=== PATIENT | male | born 1950 | race Caucasian/White ===

== ENCOUNTER → 2017-02-28 | Outpatient (CLI) | payer MEDICARE, OTHER ==
[2016-04-06 14:00] VITALS: BP 131/75
[~2017-02-28] MED LIST: ALPR0.5T6 PO; AMLO5TAB2 PO; BIMA2.5D EACHEYE; CHOL4000 PO; CRESTOR10 MG PO; DOCU-109 PO; DOXA4TAB3 PO; FINA5TAB4 PO; HYDR-2679 PO; HYDR25TA9 PO; IBUP-1027 PO; LANS30CA66 PO; LEVO50TA PO; LISI-334 PO; METF500T4 PO; METH-38 PO; MISO200T PO; NAPR500T PO; PIOG30TA41 PO
--- NOTE | 2017-02-28 17:21 | KCIC ---
MR of the right wrist Indication: Pain for a few months. History of carpal tunnel surgery. Right wrist ganglion. Technique: Standard multiplanar sequences are obtained. Findings: Moderate motion degradation. Triangular fibrocartilage: Full-thickness tear at the radial aspect, measuring 2 mm wide. Extensor carpi ulnaris tendon: Mild tendinosis, no tear or dislocation. Other extensor compartments: No apparent abnormality Flexor tendons: Intact Carpal tunnel and median nerve: Unremarkable Scapholunate ligament and lunotriquetral ligament: Scapholunate ligament is heterogeneous. No evidence of a through and through tear. There is dorsal tilt of the lunate with increased scapholunate angle. No evidence of lunotriquetral abnormality. Joints: Trace fluid at the distal radioulnar joint, radiocarpal compartment and mid carpal compartment. Bones: Marrow heterogeneity within the lunate bone on T1-weighted and T2-weighted images. No evidence of acute fracture. No bone collapse. This has a chronic appearance with serpiginous margins. Soft tissues: Mild soft tissue edema around the wrist. No dominant soft tissue cyst or ganglion is identified. Impression: 1. Full-thickness tear of the triangular fibrocartilage. 2. Abnormal marrow signal of the lunate bone, suspicious for osteonecrosis or Kienbock's disease. No evidence of macro fracture or bone collapse. 3. Scapholunate ligament is heterogeneous. There is no through and through rupture, but there is dorsal tilting of the lunate, and some degree of tearing or dissociation is suspected. 4. Mild extensor carpi ulnaris tendinosis. Electronically signed by: Freddie Pelaez MD (02/28/2017 5:18 PM)
== END | disposition home or self-care (01) ==
LOC: KCIC MRI 15:53
PROVIDERS: ATTEND Internal Medicine
DX: M67.431 Ganglion, right wrist (principal)
CPT/HCPCS: 73221

== ENCOUNTER → 2017-08-29 | Outpatient (CLI) | payer MEDICARE, OTHER ==
[~2017-08-29] MED LIST changes: -ALPR0.5T6 PO; -AMLO5TAB2 PO; -BIMA2.5D EACHEYE; +BUPIVACAINE MPF 0.25% 10 ML VIAL.; -CHOL4000 PO; -CRESTOR10 MG PO; -DOCU-109 PO; -DOXA4TAB3 PO; -FINA5TAB4 PO; -HYDR-2679 PO; -HYDR25TA9 PO; -IBUP-1027 PO; +IOHEXOL 180 MG/ML 10 ML VIAL.; -LANS30CA66 PO; -LEVO50TA PO; -LISI-334 PO; -METF500T4 PO; -METH-38 PO; -MISO200T PO; -NAPR500T PO; -PIOG30TA41 PO; +methylPREDNISolone ACETATE 80 MG/ML VIAL.
== END | disposition home or self-care (01) ==
LOC: PNCL 07:57
DX: M46.1 Sacroiliitis, not elsewhere classified (principal); M96.1 Postlaminectomy syndrome, not elsewhere classified; M48.061 Spinal stenosis, lumbar region without neurogenic claudication; M54.16 Radiculopathy, lumbar region; F41.9 Anxiety disorder, unspecified; F32.9 Major depressive disorder, single episode, unspecified; F17.200 Nicotine dependence, unspecified, uncomplicated; E03.9 Hypothyroidism, unspecified; E11.39 Type 2 diabetes mellitus with other diabetic ophthalmic complication; H40.9 Unspecified glaucoma; E78.00 Pure hypercholesterolemia, unspecified; I10 Essential (primary) hypertension; Z96.652 Presence of left artificial knee joint; Z90.49 Acquired absence of other specified parts of digestive tract; N40.0 Benign prostatic hyperplasia without lower urinary tract symptoms
CPT/HCPCS: 77002; G0260; J1040; J3490

== ENCOUNTER → 2017-11-29 | Outpatient (CLI) | payer MEDICARE, OTHER | LOC: PNCL 09:01 | DX: M48.061 Spinal stenosis, lumbar region without neurogenic claudication (principal); M54.16 Radiculopathy, lumbar region; M96.1 Postlaminectomy syndrome, not elsewhere classified; M46.1 Sacroiliitis, not elsewhere classified | CPT/HCPCS: G0260; J1040; J3490; Q9965 ==

== ENCOUNTER → 2018-01-28 | Outpatient (CLI) | payer MEDICARE, OTHER ==
[~2018-01-28] MED LIST changes: +LIDOCAINE 1% PF 2 ML VIAL.
== END ==
LOC: PNCL 08:19
DX: M46.1 Sacroiliitis, not elsewhere classified (principal); M48.061 Spinal stenosis, lumbar region without neurogenic claudication; M54.16 Radiculopathy, lumbar region; M96.1 Postlaminectomy syndrome, not elsewhere classified; H40.9 Unspecified glaucoma; E11.39 Type 2 diabetes mellitus with other diabetic ophthalmic complication; E78.00 Pure hypercholesterolemia, unspecified; I10 Essential (primary) hypertension; M19.90 Unspecified osteoarthritis, unspecified site; F32.9 Major depressive disorder, single episode, unspecified; F41.9 Anxiety disorder, unspecified; F17.200 Nicotine dependence, unspecified, uncomplicated; E03.9 Hypothyroidism, unspecified; Z96.652 Presence of left artificial knee joint; Z90.49 Acquired absence of other specified parts of digestive tract; Z98.890 Other specified postprocedural states
CPT/HCPCS: G0260; J1040; J3490; Q9965

== ENCOUNTER → 2018-03-17 | Outpatient (CLI) | payer MEDICARE, OTHER | LOC: PNCL 09:03 | DX: M46.1 Sacroiliitis, not elsewhere classified (principal); M96.1 Postlaminectomy syndrome, not elsewhere classified; M54.16 Radiculopathy, lumbar region; M48.061 Spinal stenosis, lumbar region without neurogenic claudication; I10 Essential (primary) hypertension; E03.9 Hypothyroidism, unspecified; E11.9 Type 2 diabetes mellitus without complications; M19.90 Unspecified osteoarthritis, unspecified site; F32.9 Major depressive disorder, single episode, unspecified; F41.9 Anxiety disorder, unspecified; F17.200 Nicotine dependence, unspecified, uncomplicated; Z90.49 Acquired absence of other specified parts of digestive tract; Z98.890 Other specified postprocedural states; Z96.652 Presence of left artificial knee joint; Z79.899 Other long term (current) drug therapy | CPT/HCPCS: 27096; J1040; J3490; Q9965 ==

== ENCOUNTER → 2018-04-01 | Outpatient (CLI) | payer MEDICARE, OTHER ==
[~2018-04-01] MED LIST changes: -LIDOCAINE 1% PF 2 ML VIAL.; +LIDOCAINE 2% PF 2ML VIAL.; +methylPREDNISolone ACETATE 40 MG/ML VIAL.
== END | disposition home or self-care (01) ==
LOC: PNCL 08:58
DX: M46.1 Sacroiliitis, not elsewhere classified (principal); M48.061 Spinal stenosis, lumbar region without neurogenic claudication; M96.1 Postlaminectomy syndrome, not elsewhere classified; M54.16 Radiculopathy, lumbar region; E11.39 Type 2 diabetes mellitus with other diabetic ophthalmic complication; H40.9 Unspecified glaucoma; Z98.890 Other specified postprocedural states; E78.00 Pure hypercholesterolemia, unspecified; I10 Essential (primary) hypertension; Z90.49 Acquired absence of other specified parts of digestive tract; N40.0 Benign prostatic hyperplasia without lower urinary tract symptoms; M19.90 Unspecified osteoarthritis, unspecified site; Z96.652 Presence of left artificial knee joint; E03.9 Hypothyroidism, unspecified; F41.9 Anxiety disorder, unspecified; F32.9 Major depressive disorder, single episode, unspecified; F17.200 Nicotine dependence, unspecified, uncomplicated; Z79.899 Other long term (current) drug therapy; Z79.84 Long term (current) use of oral hypoglycemic drugs
CPT/HCPCS: G0260; J1030; J1040; J2001; J3490; Q9965

== ENCOUNTER → 2018-06-30 | Outpatient (CLI) | payer MEDICARE, OTHER ==
[2016-04-06 14:00] VITALS: BP 131/75
[~2018-06-30] MED LIST changes: +ALPR0.5T6 PO; +AMLO5TAB7 PO; +BIMA2.5D EACHEYE; -BUPIVACAINE MPF 0.25% 10 ML VIAL.; +CHOL4000 PO; +CRESTOR10 MG PO; +DOCU-109 PO; +DOXA4TAB3 PO; +FINA5TAB4 PO; +HYDR-2679 PO; +HYDR25TA9 PO; +IBUP-1027 PO; -IOHEXOL 180 MG/ML 10 ML VIAL.; +IOHEXOL 180 MG/ML 10 ML VIAL. ONE; +LANS30CA66 PO; +LEVO50TA PO; +LIDOCAINE 1% PF 2 ML VIAL. ONE; -LIDOCAINE 2% PF 2ML VIAL.; +LISI-334 PO; +METF500T16 PO; +METH-38 PO; +MISO200T PO; +NAPR-683 PO; +PIOG30TA41 PO; -methylPREDNISolone ACETATE 40 MG/ML VIAL.; +methylPREDNISolone ACETATE 40 MG/ML VIAL. ONE; -methylPREDNISolone ACETATE 80 MG/ML VIAL.; +methylPREDNISolone ACETATE 80 MG/ML VIAL. ONE
--- NOTE | 2018-06-30 14:06 | PAIN ---
DATE OF SERVICE: 06/30/2018 PROGRESS NOTE FOR PAIN CLINIC DIAGNOSES: 1. Lumbar radiculopathy with lumbar spinal stenosis and post-lumbar laminectomy syndrome. 2. Sacroiliitis, right greater than left. HISTORY OF PRESENT ILLNESS: The patient is a 67-year-old male who returns for followup status post right and left sacroiliac joint injections, most recently seen on 04/01/2018. The patient had a left sacroiliac joint injection with good results. The patient reports about 100% improvement, but he is just getting off a long car ride. He was in [place] and back driving and riding back and forth, which has exacerbated the pain in the back as well as into his left lower extremity. The patient reports the pain is traveling in the left gluteus, left posterior thigh, lateral thigh, anterior thigh, medial thigh, medial knee and medial lower leg and calf on the left side as well as across the low back and pain in the right side as well. The patient reports the pain is a 8 on a scale of 10 at its worst, average and at its least and is an 8 today. The patient reports no new motor or sensory deficits, no bowel or bladder incontinence. Initially, he was walking much greater distances, driving with much greater ease and comfort back after his injection in March, but now the pain is returning and again in a radicular pattern into the left lower extremity as well as pain across the low back and into the right sacroiliac region. PHYSICAL EXAMINATION: VITAL SIGNS: The patient's blood pressure is 134/75, pulse 99, respirations 16, temperature 97.9 degrees Fahrenheit, height is 6 feet, weight is 280 pounds. GENERAL: The patient is awake, alert, oriented, appropriate, very pleasant demeanor. HEENT: Head shows normocephalic, atraumatic. Extraocular movements are intact and symmetrical. Oral cavity: Mucous membranes are moist and pink. Dentition is intact. NECK: Shows anterior throat supple without palpable lymphadenopathy noted. Swallow reflex is symmetrical. CHEST: Shows normal on inspection. Breath sounds are clear to auscultation bilaterally. HEART: Shows S1, S2 clear. No murmurs auscultated. ABDOMEN: Soft, nontender, nondistended. No palpable organomegaly is noted. No rebound or guarding demonstrated. BACK: Shows spine grossly in the midline. Slight exaggeration of thoracic kyphosis and some minor flattening of lumbar lordotic curvature with well-healed surgical scar in the midline. Lumbar paraspinous muscle shows symmetrical on inspection, on palpation shows some moderate tenderness bilaterally, but only diffusely without radiation. The patient has good rotational motion of lumbar spine, both laterally as well as extension and flexion without significant difficulty. There is some moderate tenderness over the right posterior superior iliac spine and right sacroiliac region, but less so on the left. The patient shows no tenderness over the sacrum or spinous processes. The patient has good rotational motion of lumbar spine, both laterally as well as extension and flexion without difficulty. EXTREMITIES: Lower extremities show deep tendon reflexes at 1+ in the patellar and tendo calcaneus tendons. Motor exam is approximately 5 on a scale of 5 and symmetrical with dorsiflexion, extension, quadriceps and hamstring flexion. Peripheral pulses are 1+ posterior tibia. No peripheral edema is noted. Options were discussed with the patient. The patient's old chart was reviewed as his current medication regimen updated. Current review of systems updated today as well. We will proceed with a lumbar epidural steroid injection today with fluoroscopic guidance. Risks were again discussed including, but not limited to bleeding, infection, possibility of epidural hematoma, subsequent neurologic compromise, dural puncture, headaches, spinal cord and/or nerve damage, side effects of steroid medication and poor results regarding pain control. The patient understands and wished to proceed. The patient will return to the clinic in approximately 2 weeks for followup, was counseled on return appointment, activity level and side effects to be aware of. DIAGNOSIS: Lumbar radiculopathy with lumbar spinal stenosis and post-lumbar laminectomy syndrome. PROCEDURE: Lumbar epidural steroid injection, translaminar approach at L3-L4 level using C-arm fluoroscopic guidance under sterile prep and drape using local anesthetic. MEDICATION INJECTED: A total of 120 mg Depo-Medrol plus 10 mL of preservative-free normal saline and 2 mL of Isovue for contrast. CONDITION AT DISCHARGE: Stable. The patient tolerated the procedure well, had no complications. JEREL CHURCH MD DR: VIRGEN/simon JOB#: [id number] / [id number]
== END | disposition home or self-care (01) ==
LOC: PNCL 07:45
PROVIDERS: ATTEND Anesthesiology
DX: M48.061 Spinal stenosis, lumbar region without neurogenic claudication (principal); M96.1 Postlaminectomy syndrome, not elsewhere classified; M54.16 Radiculopathy, lumbar region; M46.1 Sacroiliitis, not elsewhere classified
CPT/HCPCS: 62323; J1030; J1040; Q9965

== ENCOUNTER → 2018-08-01 | Outpatient (CLI) | payer MEDICARE, OTHER ==
[2016-04-06 14:00] VITALS: BP 131/75
[~2018-08-01] MED LIST changes: +HYDR-2145 PO; -HYDR25TA9 PO; -LIDOCAINE 1% PF 2 ML VIAL. ONE
--- NOTE | 2018-08-01 20:21 | PAIN ---
DATE OF SERVICE: 08/01/2018 PROGRESS NOTE FOR PAIN CLINIC DIAGNOSES: 1. Lumbar radiculopathy with lumbar spinal stenosis, post-lumbar meclizine. 2. Sacroiliitis, right greater than left. HISTORY OF PRESENT ILLNESS: The patient is a 67-year-old male who returns for followup status post lumbar epidural steroid injection x 1 on 06/30/2018. The patient did very well and reports about 80% improvement for the first few weeks and then, he was doing some holiday decorating over the past 2-3 weeks with exacerbation of the pain with standing on ladders for a prolonged period of time and raising up over his head with some decorations and so forth. The patient reports pain is returning now in the low back, more on the right side than the left. It is still in the left leg as it was previously in the lateral anterior aspect of the thigh, anterior medial thigh as well. The patient reports it is 9 on a scale of 10 at its worst, 6 on average and is 3 on a scale of 10 at its least and is a 6 today. The patient reports it is sharp, radiating, stabbing and severe but mostly dull and aching in the low back and into the left leg is more sharp and shooting. The patient reports no new motor or sensory deficits and reports he is doing very well with increased distance walking and doing activities around the house with decorating, sleeping well at night, awakens him occasionally but not sooner than every 6-8 hours. The patient reports he needs to reposition and get back to sleep. No new motor or sensory deficits and no bowel or bladder incontinence reported. PHYSICAL EXAMINATION: VITAL SIGNS: The patient's blood pressure 143/87, pulse 99, respirations 18 and temperature 98.2 degrees Fahrenheit. Height 6 feet and weight is 278 pounds. GENERAL: The patient is awake, alert, oriented, appropriate and very pleasant demeanor. HEENT: Head shows normocephalic and atraumatic. Extraocular movements are intact and symmetrical. Oral cavity: Mucous membranes moist and pink. Dentition is intact. NECK: Shows anterior throat supple without palpable lymphadenopathy noted. Swallow reflex symmetrical. CHEST: Shows normal with inspection. Breath sounds clear to auscultation bilaterally. HEART: Shows S1 and S2 clear. No murmurs auscultated. ABDOMEN: Soft, nontender and nondistended. No palpable organomegaly is noted. No rebound or guarding demonstrated. BACK: Shows spine grossly in the midline. Some slight flattening of the lumbar lordotic curvature with well-healed surgical scar noted. Lumbar paraspinous musculature shows symmetrical on inspection. On palpation shows some moderate tenderness diffusely bilaterally but without significant radiation or trigger points. The patient shows good rotational motion both laterally as well as extension and flexion of the lumbar spine without significant difficulty. EXTREMITIES: The patient's lower extremities show deep tendon reflexes 1+ in the patellar and tendo calcaneus tendons are equal. Motor exam is strong with 5/5 dorsiflexion, extension, quadriceps and hamstring flexion and symmetrical. Peripheral pulses are 1+ posterior tibia. No peripheral edema is noted bilaterally. Options were discussed with the patient. The patient's old chart was reviewed as well as his current medication regimen updated. Current review of systems updated today as well. We will proceed with a second in the series of lumbar epidural steroid injection today with fluoroscopic guidance. Risks were again discussed including, but not limited to bleeding, infection, possibility of epidural hematoma, subsequent neurologic compromise, dural puncture, headaches, spinal cord and/or nerve damage, side effects of steroid medication and poor results regarding pain control. The patient understands and wished to proceed. The patient will return to the clinic in approximately 2 weeks for followup, was counseled as to return appointment, activity level and side effects to be aware of. DIAGNOSES: Lumbar radiculopathy with lumbar spinal stenosis and post-lumbar laminectomy syndrome. PROCEDURE: Lumbar epidural steroid injection, translaminar approach at L3-L4 level using C-arm fluoroscopic guidance under sterile prep and drape using local anesthetic. MEDICATION INJECTED: A total of 120 mg Depo-Medrol plus 10 mL of preservative-free normal saline and 2 mL of Isovue for contrast. CONDITION AT DISCHARGE: Stable. The patient tolerated the procedure well and had no complications. JEREL CHURCH MD DR: VIRGEN/simon JOB#: [id number] / [id number]
== END | disposition home or self-care (01) ==
LOC: PNCL 08:36
PROVIDERS: ATTEND Anesthesiology
DX: M48.061 Spinal stenosis, lumbar region without neurogenic claudication (principal); M96.1 Postlaminectomy syndrome, not elsewhere classified; M54.16 Radiculopathy, lumbar region; M46.1 Sacroiliitis, not elsewhere classified; Z79.899 Other long term (current) drug therapy
CPT/HCPCS: 62323; J1030; J1040; Q9965

== ENCOUNTER → 2018-12-24 | Outpatient (CLI) | payer MEDICARE, OTHER ==
[2016-04-06 14:00] VITALS: BP 131/75
[~2018-12-24] MED LIST changes: +AMLO5TAB10 PO; -AMLO5TAB7 PO; -CHOL4000 PO; +CHOL40003 PO
--- NOTE | 2018-12-24 22:55 | PAIN ---
DATE OF SERVICE: 12/24/2018 DIAGNOSES: Lumbar radiculopathy with lumbar spinal stenosis and post-laminectomy syndrome. HISTORY OF PRESENT ILLNESS: The patient is a 68-year-old male who returns for followup status post lumbar epidural steroid injection x 2, most recently seen on 08/01/2018: The patient did very well with near 100% improvement until the last week, the pain began to return and he rolled over in bed, had a popping sensation in the low back on the right side and had pain in the right side of the right leg since that time. It is radiating in the lateral anterior thigh, anterior medial thigh and medial knee on the right side only. The patient reports it is 6 on a scale of 10 at its worst, 6 on average, 4 at its least and is 6 today. The patient reports it is sharp, tingling, burning, stabbing. He was also doing some increased work at home. He was feeling very well, had moved over 3000 pounds of rock by himself in the last week, which has increased the pain as well. The patient reports otherwise he was doing much better prior to that, distance walking, household activities, recreational activities, traveling, sleeping better at night until the last few days. The patient reports no new motor or sensory deficits, no new bowel or bladder incontinence or other complaints. PHYSICAL EXAMINATION: VITAL SIGNS: The patient's blood pressure is 128/81, pulse 81, respirations 16, temperature 97.6 degrees Fahrenheit, height 6 feet, weight is 278 pounds. GENERAL: The patient is awake, alert, oriented, appropriate, very pleasant demeanor. HEENT: Head is normocephalic, atraumatic. Extraocular movements are intact and symmetrical. Oral cavity: Mucous membranes moist and pink. Dentition is intact. NECK: Shows anterior throat supple without palpable lymphadenopathy noted. Swallow reflex symmetrical. CHEST: Shows normal with inspection. Breath sounds clear to auscultation bilaterally. HEART: Shows S1, S2 clear. No murmurs auscultated. ABDOMEN: Soft, nontender, nondistended, obese. No palpable organomegaly is noted. No rebound or guarding demonstrated. BACK: Shows spine grossly in the midline. Normal-appearing thoracic kyphosis and minor flattening of lumbar lordotic curvature. Well-healed surgical scar noted. Lumbar paraspinous muscle shows symmetrical on inspection; on palpation shows some moderate tenderness, but only diffusely without significant radiation. The patient's back shows good rotational motion both laterally as well as extension and flexion without significant pain reported. EXTREMITIES: Lower extremities show deep tendon reflexes 1+ in the patellar and tendo-calcaneus tendons are equal. Motor exam is strong with 5/5 dorsiflexion, extension, quadriceps and hamstring flexion. Peripheral pulses are 1+ posterior tibia. No peripheral edema is noted bilaterally. Options were discussed with the patient. The patient's old chart was reviewed as was his current medication regimen updated. Current review of systems updated today as well. We will proceed with a third in the series of lumbar epidural steroid injection today with fluoroscopic guidance. Risks were again discussed including, but not limited to bleeding, infection, possibility of epidural hematoma, subsequent neurological compromise, dural puncture, headaches, spinal cord and/or nerve damage, side effects of steroid medication and poor results regarding pain control. The patient understands and wished to proceed. The patient will return to clinic in approximately 2 weeks for followup, was counseled as to return appointment, activity level and side effects to be aware of. DIAGNOSIS: Lumbar radiculopathy with lumbar spinal stenosis, post-lumbar laminectomy syndrome. PROCEDURE: Lumbar epidural steroid injection, translaminal approach at L3-L4 level using C-arm fluoroscopic guidance under sterile prep and drape using local anesthetic. MEDICATIONS INJECTED: 120 mg Depo-Medrol plus 10 mL of preservative-free normal saline and 2 mL of contrast. CONDITION AT DISCHARGE: Stable. The patient tolerated the procedure well, had no complications. JEREL CHURCH MD DR: VIRGEN/simon JOB#: [id number] / [id number]
== END | disposition home or self-care (01) ==
LOC: PNCL 10:25
PROVIDERS: ATTEND Anesthesiology
DX: M48.061 Spinal stenosis, lumbar region without neurogenic claudication (principal); M54.16 Radiculopathy, lumbar region; M96.1 Postlaminectomy syndrome, not elsewhere classified
CPT/HCPCS: 62323; J1030; J1040; Q9965

== ENCOUNTER → 2019-05-14 | Outpatient (CLI) | payer MEDICARE, OTHER ==
[2016-04-06 14:00] VITALS: BP 131/75
[~2019-05-14] MED LIST changes: +BUPIVACAINE MPF 0.25% 10 ML VIAL. ONE
--- NOTE | 2019-05-14 23:42 | PAIN ---
DATE OF SERVICE: 05/14/2019 PROGRESS NOTE FOR PAIN CLINIC DIAGNOSES: 1. Lumbar radiculopathy with lumbar degenerative disk disease, lumbar spinal stenosis, post-lumbar laminectomy syndrome. 2. Bilateral sacroiliitis. HISTORY OF PRESENT ILLNESS: The patient is a 68-year-old male who returns for followup status post lumbar epidural steroid injection, most recently on 12/21/2018. The patient did well with about 80% improvement only for the first 4 or 5 days, then the pain began to return. The patient reports he has just gotten back from a 5700-mile automobile [place] then to [place] with some increased pain in the base of the low back and the hips posteriorly with some radiation into the left lateral calf, but only on the left calf, not into the thigh. The patient reports it is worse with walking, standing, changing positions or sitting for a prolonged period. He has been sitting finding himself leaning over to his right side so that there is pressure off of the left side. Reports the pain is a 10 on a scale of 10 at its worst, 8 on average, 6 at its least and is a 6. Currently, the patient reports it is sharp, radiating, sometimes unbearable with prolonged sitting. The patient reports it is worse with walking as well, but mostly with sitting or sitting upright. The patient reports it is better with lying down, it does not awaken him from sleep at night. He is sleeping about 8 hours at a time. The patient reports no new motor or sensory deficits, no new bowel or bladder incontinence or other complaints. PHYSICAL EXAMINATION: VITAL SIGNS: The patient's blood pressure is 138/74, pulse 83, respirations 18, temperature 98.2 degrees Fahrenheit. Height is 6 feet. Weight is 281 pounds. GENERAL: The patient is awake, alert, oriented, appropriate, very pleasant demeanor. HEENT: Shows normocephalic, atraumatic. Extraocular movements are intact and symmetrical. Oral cavity: Mucous membranes moist and pink. Dentition is intact. NECK: Shows anterior throat supple without palpable lymphadenopathy noted. Swallow reflex symmetrical. CHEST: Shows normal on inspection. Breath sounds clear to auscultation bilaterally. HEART: Shows S1, S2 clear. ABDOMEN: Obese, soft, nontender, nondistended. BACK: Shows spine grossly in the midline. Normal appearing thoracic kyphosis and minor flattening of lumbar lordotic curvature. Lumbar paraspinous muscle shows symmetrical on inspection, with palpation shows some moderate tenderness diffusely in the middle and lower distribution of the lumbar paraspinous muscles, but only diffusely without radiation. The patient's sacroiliac region shows significant tenderness on the left with posterior superior iliac spine involving the superior aspect of the sacroiliac joint on the left. Right side shows moderate tenderness of posterior superior iliac spine as well as the superior aspect of the sacroiliac joint on the right side as well with direct palpation. The patient has good rotational motion of lumbar spine, extension and flexion without significant difficulty. EXTREMITIES: The patient's lower extremities show deep tendon reflexes 1+ in the patellar and tendo calcaneus tendons. Motor exam is 5/5 with dorsiflexion, extension, quadriceps and hamstring flexion equal. The patient does have positive Gaenslen's maneuver on the left with posterior displacement of the lower leg over the side and external rotation of the hip with pain in the posterior aspects of sacroiliac region on the left side, significantly very mildly but present on the right side as well. Options were discussed with the patient. The patient's old chart was reviewed and his current medication regimen updated. Current review of systems updated today as well. We will proceed with bilateral sacroiliac joint injections today with fluoroscopic guidance. Risks were again discussed including but not limited to bleeding, infection, possibility of intravascular injection sequelae, spread of local anesthetic and numbness, side effects of steroid medication, exposure to fluoroscopy and poor results regarding pain control. The patient understands and wished to proceed. The patient will return to clinic in approximately 2 weeks for followup. He was counseled as to return appointment, activity level and side effects to be aware of. DIAGNOSIS: Bilateral sacroiliitis. PROCEDURE: Bilateral sacroiliac joint injection using C-arm fluoroscopic guidance under sterile prep and drape using local anesthetic. MEDICATIONS INJECTED: Total of 120 mg of Depo-Medrol 60 mg per side, total of 4 mL of 0.25% bupivacaine 2 mL per side after negative aspiration at each site prior to injection, 4 mL total of 2 mL per site of contrast. CONDITION AT DISCHARGE: Stable. The patient tolerated the procedure well, had no complications. JEREL CHURCH MD DR: VIRGEN/simon JOB#: [id number] / [id number]
== END ==
LOC: PNCL 13:28
PROVIDERS: ATTEND Anesthesiology
DX: M46.1 Sacroiliitis, not elsewhere classified (principal); M51.16 Intervertebral disc disorders with radiculopathy, lumbar region; M96.1 Postlaminectomy syndrome, not elsewhere classified
CPT/HCPCS: G0260; J1030; J1040; J3490; Q9965; 27096

== ENCOUNTER → 2019-09-22 | Outpatient (CLI) | payer MEDICARE, OTHER ==
[2016-04-06 14:00] VITALS: BP 131/75
[~2019-09-22] MED LIST changes: -methylPREDNISolone ACETATE 40 MG/ML VIAL. ONE
--- NOTE | 2019-09-22 23:47 | PAIN ---
DATE OF SERVICE: 09/22/2019 PROGRESS NOTE FOR PAIN CLINIC DIAGNOSES: 1. Lumbar radiculopathy with lumbar spinal stenosis, lumbar post-laminectomy syndrome. 2. Bilateral sacroiliitis. HISTORY OF PRESENT ILLNESS: The patient is a 68-year-old male who returns for followup status post bilateral sacroiliac joint injections in May 2019. The patient did very well. His left side is completely 100% improved. His right side; however, is becoming more painful. The patient also reports some pain when he is seated in a prolonged position when he is driving with pain radiating into the posterior gluteus, posterior lateral thigh, and lateral anterior thigh on the left. The patient usually is able to shift positions and change positions to get this to go away fairly quickly. The patient reports the pain in the right side; however, is much more bothersome and much more painful with sitting, walking, standing, changing positions, does not awaken him from sleep at night, better with sitting or lying down, but not if he sitting for prolonged periods such as when he is driving. The patient reports again his right side is the only area of significant concern today. His left side is doing very well since last May. PHYSICAL EXAMINATION: VITAL SIGNS: The patient's blood pressure 147/85, pulse is 98, respirations 18, temperature 97.7 degrees Fahrenheit, height is 6 feet, weight is 280 pounds. The patient rates his pain at 8 on a scale of 10 at its worst over the past week, 5 on average, 5 at its least and is a 5 today, described as sharp and shooting, tingling, radiating in the right side significantly into the gluteus, but not into the lower extremity. GENERAL: The patient is awake, alert, oriented, appropriate, very pleasant demeanor. HEENT: Shows normocephalic, atraumatic. The patient wears eye glasses. Extraocular movements are intact and symmetrical. Oral cavity: Mucous membranes moist and pink. Dentition is intact. NECK: Shows anterior throat supple without palpable lymphadenopathy noted. Swallow reflex symmetrical. CHEST: Shows normal on inspection. Breath sounds clear to auscultation bilaterally. HEART: Shows S1, S2 clear. No murmurs auscultated. ABDOMEN: Soft, nontender, nondistended. No palpable organomegaly is noted. No rebound or guarding demonstrated. BACK: Shows spine grossly in the midline. Normal appearing thoracic kyphosis as well as some flattening of lumbar lordotic curvature. Lumbar paraspinous muscle shows symmetrical on inspection, well-healed surgical scars noted. With palpation shows some moderate tenderness diffusely, but only diffusely in the lower lumbar distribution without any radiation, without any atrophy, hypertrophy or asymmetry. The patient has good rotational motion of lumbar spine, both laterally as well as extension and flexion without significant difficulty with palpation over the posterior superior iliac spines. Left side is nontender. Right side significantly tender over the superior aspect of the posterior superior iliac spine and superior sacroiliac joint itself. The patient shows good rotational motion without exacerbation of pain, but significant tenderness with direct palpation on the posterior superior iliac spine and slightly medial and inferior to this on his superior aspect of the SI joint. EXTREMITIES: The patient's lower extremities show deep tendon reflexes 1+ in the patellar and tendo calcaneus tendons. Motor exam is strong with 5/5 dorsiflexion, extension, quadriceps and hamstring flexion. Options were discussed with the patient. The patient's old chart was reviewed as his current medication regimen updated. Current review of systems updated today as well. We will proceed with a right-sided sacroiliac joint injection today with fluoroscopic guidance. Risks were again discussed including, but not limited to bleeding, infection, possibility of intravascular injection sequelae, spread of local anesthetic and numbness, side effects of steroid medication, exposure to fluoroscopy and poor results regarding pain control. The patient understands and wished to proceed. The patient will return to clinic in approximately 2 weeks for followup. He was counseled on return appointment, activity level and side effects to be aware of. DIAGNOSIS: Right sacroiliitis. PROCEDURE: Right sacroiliac joint injection using C-arm fluoroscopic guidance under sterile prep and drape using local anesthetic. MEDICATION INJECTED: Total of 80 mg Depo-Medrol plus 4 mL of 0.25% bupivacaine and 1.5 mL of contrast. CONDITION AT DISCHARGE: Stable. The patient tolerated the procedure well, had no complications. JEREL CHURCH MD DR: VIRGEN/simon JOB#: [id number] / [id number]
== END ==
LOC: PNCL 13:01
PROVIDERS: ATTEND Anesthesiology
DX: M46.1 Sacroiliitis, not elsewhere classified (principal); M54.16 Radiculopathy, lumbar region; M48.061 Spinal stenosis, lumbar region without neurogenic claudication; M96.1 Postlaminectomy syndrome, not elsewhere classified
CPT/HCPCS: G0260; J1040; J3490; Q9965; 27096

== ENCOUNTER → 2019-12-16 | Outpatient (CLI) | payer MEDICARE, OTHER ==
[2016-04-06 14:00] VITALS: BP 131/75
[~2019-12-16] MED LIST changes: +LEVO75TA5 PO; +LOSA100T2 PO
--- NOTE | 2019-12-16 10:14 | PAIN ---
DATE OF SERVICE: 12/16/2019 PROGRESS NOTE FOR PAIN CLINIC DIAGNOSES: 1. Lumbar radiculopathy with lumbar spinal stenosis, lumbar post-laminectomy syndrome. 2. Bilateral sacroiliitis. HISTORY OF PRESENT ILLNESS: The patient is a 69-year-old male who returns for followup status post right sacroiliac joint injection on 09/22/2019. The patient did very well for about 3 months of near 100% improvement after the injection. The patient reports he still has some pain returning and has some pain across the low back. In the meantime, he is getting more active at home, doing yard activities as well as preparing meals at home. It is beginning to cause the pain in the low back, especially on the right. The patient reports it is a 10 on a scale of 10 at its worst over the past week, 8 on average, 7 at its least and is a 7 today. The patient reports tingling, aching, sharp, shooting, radiating across the low back, but not into the lower extremities currently. The patient reports mainly on the right side, has to limit his work. Otherwise, he is doing much better with distance walking, work activities, household activities, especially in the yard, does not awaken him from sleep at night, feels better sitting or lying down. No new motor or sensory deficits, no new bowel or bladder incontinence. PHYSICAL EXAMINATION: VITAL SIGNS: The patient's blood pressure 126/76, pulse 96, respirations 16, temperature 98.0 degrees Fahrenheit, height 6 feet, weight is 278 pounds. GENERAL: The patient is awake, alert, oriented, appropriate, very pleasant demeanor. HEENT: Head shows normocephalic, atraumatic. Extraocular movements are intact and symmetrical. Oral cavity shows mucous membranes moist and pink. Dentition is intact. NECK: Shows anterior throat supple without palpable lymphadenopathy noted. Swallow reflex symmetrical. CHEST: Shows normal on inspection. Breath sounds clear to auscultation bilaterally. HEART: Shows S1, S2 clear. No murmurs auscultated. ABDOMEN: Obese, soft, nontender, nondistended. BACK: Shows spine grossly in the midline. Normal appearing thoracic kyphosis and minor flattening of lumbar lordotic curvature. Lumbar paraspinous muscle shows symmetrical on inspection with a well-healed surgical scar in the midline. Paraspinous muscle shows moderate tenderness with palpation, more on the right than the left and significant tenderness over the posterior superior iliac spine on the right, only mildly tender on the left side, also some mild tenderness over the superior aspect of the sacroiliac joint on the right, but not the left. The patient has good rotational motion of lumbar spine, both laterally as well as extension and flexion without significant difficulty or pain reported. EXTREMITIES: The patient's lower extremities show deep tendon reflexes at 1+ in the patellar and tendo calcaneus tendons. Motor exam is strong with 5/5 dorsiflexion, extension, quadriceps and hamstring flexion symmetrical. Peripheral pulses are 1+ posterior tibia. No peripheral edema is noted bilaterally. Options were discussed with the patient. The patient's old chart was reviewed as his current medication regimen updated. Current review of systems updated today as well. We will proceed with a right sacroiliac joint injection today with fluoroscopic guidance. Risks were again discussed including, but not limited to bleeding, infection, possibility of intravascular injection sequelae, spread of local anesthetic and numbness, side effects of steroid medication, exposure to fluoroscopy and poor results regarding pain control. The patient understands and wished to proceed. The patient will return to clinic in approximately 2 weeks for followup, was counseled on return appointment, activity level and side effects to be aware of. DIAGNOSIS: Right sacroiliitis. PROCEDURE: Right sacroiliac joint injection using C-arm fluoroscopic guidance under sterile prep and drape using local anesthetic. MEDICATION INJECTED: Total of 80 mg Depo-Medrol plus 3 mL of 0.25% bupivacaine and 2 mL of contrast. CONDITION AT DISCHARGE: Stable. The patient tolerated procedure well, had no complications. JEREL CHURCH MD DR: VIRGEN/simon JOB#: [id number] / [id number]
== END ==
LOC: PNCL 08:47
PROVIDERS: ATTEND Anesthesiology
DX: M46.1 Sacroiliitis, not elsewhere classified (principal); M48.061 Spinal stenosis, lumbar region without neurogenic claudication; M96.1 Postlaminectomy syndrome, not elsewhere classified
CPT/HCPCS: G0260; J1040; J3490; Q9965; 27096

== ENCOUNTER → 2019-12-30 | Outpatient (CLI) | payer MEDICARE, OTHER ==
[2016-04-06 14:00] VITALS: BP 131/75
[~2019-12-30] MED LIST changes: -BUPIVACAINE MPF 0.25% 10 ML VIAL. ONE; +methylPREDNISolone ACETATE 40 MG/ML VIAL. ONE
--- NOTE | 2019-12-30 12:45 | PAIN ---
DATE OF SERVICE: 12/30/2019 PROGRESS NOTE FOR PAIN CLINIC DIAGNOSES: 1. Lumbar radiculopathy with lumbar spinal stenosis, lumbar post-laminectomy syndrome. 2. Bilateral sacroiliitis. HISTORY OF PRESENT ILLNESS: The patient is a 69-year-old male who returns for followup status post bilateral sacroiliac joint injections, which was 12/16/2019. The patient reports he did very well with 100% improvement on the right and about 80% improvement on the left. The patient reports still significant pain in the low back and right lower extremity, however, down to anterior thigh, medial leg and into the great toe on the right side. The patient reports no new motor or sensory deficits, but significant pain with walking, standing, changing positions, while his back is doing better, the leg on the right side, specifically in the anterior thigh, medial thigh, medial lower leg is much more painful. The patient reports it is worse with walking, initially he was doing much better with distances, walking, doing household activities, traveling with greater ease and comfort, but now the pain is fairly significant in the leg. The patient reports it is at 10 on a scale of 10 at its worst over the past week, 7 on average and 4 at its least and is a 4 today. The patient reports it is sharp and shooting, stabbing, radiating in the leg on the right side, mainly in the anterior thigh, medial knee and calf. No new motor or sensory deficits, no new bowel or bladder incontinence. The patient reports it awakens him from sleep occasionally, but not every night. PHYSICAL EXAMINATION: VITAL SIGNS: The patient's blood pressure 133/78, pulse 75, respirations 18, temperature 98.1 degrees Fahrenheit, height 6 feet, weight is 277 pounds. GENERAL: The patient is awake, alert, oriented, appropriate, very pleasant demeanor. HEENT: Shows normocephalic, atraumatic. Extraocular movements are intact and symmetrical. Oral cavity shows mucous membranes moist and pink. Dentition is intact. NECK: Shows anterior throat supple without palpable lymphadenopathy noted. Swallow reflex symmetrical. CHEST: Shows normal on inspection. Breath sounds are clear bilaterally. HEART: Shows S1, S2 clear. No murmurs auscultated. ABDOMEN: Soft, nontender, nondistended. BACK: Shows spine grossly in the midline. Normal appearing thoracic kyphosis and minor flattening of lumbar lordotic curvature with well-healed surgical scar noted in the lumbar distribution. Lumbar paraspinous muscle shows symmetrical on inspection, on palpation shows some moderate tenderness diffusely bilaterally, but only diffusely without significant radiation. The patient has good rotational motion of lumbar spine, both laterally as well as extension and flexion without significant increase in pain. Sacroiliac joint shows some very mild tenderness, slightly more on the left than the right in the posterior superior iliac spine, but only very mild tenderness over the sacroiliac regions in the joints themselves bilaterally. EXTREMITIES: Lower extremities show deep tendon reflexes 1+ in the patellar and tendo calcaneus tendons are equal. Motor exam is strong with 5/5 dorsiflexion, extension, quadriceps and hamstring flexion symmetrical. Peripheral pulses are 1+. No peripheral edema is noted bilaterally. Options were discussed with the patient. The patient's old chart was reviewed as his current medication regimen updated. Current review of systems updated today as well. We will proceed with a lumbar epidural steroid injection, today is the first in this series. Risks were again discussed including, but not limited to bleeding, infection, possibility of epidural hematoma, subsequent neurological compromise, dural puncture, headaches, spinal cord and/or nerve damage, side effects of steroid medication and poor results regarding pain control. The patient understands and wished to proceed. The patient will return to clinic in approximately 2 weeks for followup. He was counseled as to return appointment, activity level and side effects to be aware of. DIAGNOSES: Lumbar radiculopathy with lumbar degenerative disk disease and lumbar spinal stenosis and post-lumbar laminectomy syndrome. PROCEDURE: Lumbar epidural steroid injection, translaminar approach at L3-L4 level using C-arm fluoroscopic guidance under sterile prep and drape using local anesthetic. MEDICATION INJECTED: A total of 120 mg Depo-Medrol plus 10 mL of preservative-free normal saline and 2 mL of contrast. CONDITION AT DISCHARGE: Stable. The patient tolerated the procedure well, had no complications. JEREL CHURCH MD DR: VIRGEN/simon JOB#: [id number] / [id number]
== END ==
LOC: PNCL 10:42
PROVIDERS: ATTEND Anesthesiology
DX: M51.16 Intervertebral disc disorders with radiculopathy, lumbar region (principal); M96.1 Postlaminectomy syndrome, not elsewhere classified; M48.061 Spinal stenosis, lumbar region without neurogenic claudication; M46.1 Sacroiliitis, not elsewhere classified
CPT/HCPCS: 62323; J1030; J1040; Q9965

== ENCOUNTER → 2020-01-21 | Outpatient (CLI) | payer MEDICARE, OTHER ==
[2016-04-06 14:00] VITALS: BP 131/75
--- NOTE | 2020-01-21 13:45 | PAIN ---
DATE OF SERVICE: 01/21/2020 PROGRESS NOTE FOR PAIN CLINIC DIAGNOSES: 1. Lumbar radiculopathy with lumbar spinal stenosis, lumbar post-laminectomy syndrome. 2. Bilateral sacroiliitis. HISTORY OF PRESENT ILLNESS: The patient is a 69-year-old male who returns for followup status post lumbar epidural steroid injection x 1 on 12/30/2019. The patient reports he did very well, about 80% improvement for the first few weeks, but the pain has been returning now in the low back and right lower extremity, mostly in the right posterior gluteus, lateral thigh and medial thigh on the right side. The patient reports some pain in the left side of the low back as well, but much better than it was. The patient reports even increased activity, doing greater distance walking, doing household activities, weed eating; however, it has been causing more pain in the low back when he is doing this function, which he was doing about 3 days ago. The patient reports the pain is a 10 on a scale of 10 at its worst over the past week, usually during weed eating 8 on average, 6 at its least and is a 6 today. The patient reports it is sharp and shooting across the low back, tingling, shooting into the leg with radiating pain in the right leg and can be unbearable at times. The patient reports it does not awaken her from sleep at night, much better with sitting or lying down. PHYSICAL EXAMINATION: VITAL SIGNS: The patient's blood pressure 126/58, pulse 80, respirations 18, temperature 98.5 degrees Fahrenheit, height is 6 feet, weight is 276 pounds. GENERAL: The patient is awake, alert, oriented, appropriate, very pleasant demeanor. HEENT: Shows normocephalic, atraumatic. Extraocular movements are intact and symmetrical. Oral cavity: Mucous membranes moist and pink. Dentition is intact. NECK: Shows anterior throat supple without palpable lymphadenopathy noted. Swallow reflex symmetrical. CHEST: Shows normal on inspection. Breath sounds are clear bilaterally. HEART: Shows S1, S2 clear. No murmurs auscultated. ABDOMEN: Soft, nontender, nondistended. No palpable organomegaly is noted. There is no rebound or guarding demonstrated. BACK: Shows spine grossly in the midline. Normal appearing thoracic kyphosis, minor flattening of lumbar lordotic curvature. Lumbar paraspinous muscle shows symmetrical on inspection, with palpation and shows a well-healed surgical scar in the lumbar distribution, with palpation shows some moderate tenderness diffusely bilaterally, but only diffusely without significant radiation. The patient has good rotational motion of lumbar spine, both laterally as well as extension and flexion with some moderate tenderness with pain over the posterior superior iliac spine on the right, but much less so on the left. EXTREMITIES: Lower extremities show deep tendon reflexes 1+ in the patellar and tendo calcaneus tendons are equal. Motor exam is 5/5 with dorsiflexion, extension, quadriceps and hamstring flexion and symmetrical. Peripheral pulses are 1+ bilaterally. Options were discussed with the patient. The patient's old chart was reviewed as his current medication regimen updated. Current review of systems updated today as well. We will proceed with a second in a series of lumbar epidural steroid injection today with fluoroscopic guidance. Risks were again discussed including, but not limited to bleeding, infection, possibility of epidural hematoma, subsequent neurological compromise, dural puncture, headaches, spinal cord and/or nerve damage, side effects of steroid medication and poor results regarding pain control. The patient understands and wished to proceed. The patient will return to clinic in approximately 2 weeks for followup. He was counseled on return appointment, activity level and side effects to be aware of. DIAGNOSES: Lumbar radiculopathy with lumbar spinal stenosis, lumbar post-laminectomy syndrome. PROCEDURE: Lumbar epidural steroid injection, translaminar approach at L3-L4 level using C-arm fluoroscopic guidance under sterile prep and drape using local anesthetic. MEDICATION INJECTED: A total of 120 mg Depo-Medrol plus 10 mL of preservative-free normal saline and 2 mL of contrast. CONDITION AT DISCHARGE: Stable. The patient tolerated procedure well, had no complications. JEREL CHURCH MD DR: VIRGEN/simon JOB#: [id number] / [id number]
== END | disposition home or self-care (01) ==
LOC: PNCL 10:46
PROVIDERS: ATTEND Anesthesiology
DX: M54.16 Radiculopathy, lumbar region (principal); M48.061 Spinal stenosis, lumbar region without neurogenic claudication; M46.1 Sacroiliitis, not elsewhere classified; M96.1 Postlaminectomy syndrome, not elsewhere classified; Z98.890 Other specified postprocedural states
CPT/HCPCS: 62323; J1030; J1040; Q9965

== ENCOUNTER → 2020-03-17 | Outpatient (CLI) | payer MEDICARE, OTHER ==
[2016-04-06 14:00] VITALS: BP 131/75
[~2020-03-17] MED LIST changes: +BUPIVACAINE MPF 0.25% 10 ML VIAL. ONE; -methylPREDNISolone ACETATE 40 MG/ML VIAL. ONE
--- NOTE | 2020-03-17 15:55 | PAIN ---
DATE OF SERVICE: 03/17/2020 PROGRESS NOTE FOR PAIN CLINIC DIAGNOSES: 1. Lumbar radiculopathy with lumbar spinal stenosis, lumbar post-laminectomy syndrome. 2. Bilateral sacroiliitis. HISTORY OF PRESENT ILLNESS: The patient is a 69-year-old male who returns for followup status post lumbar epidural steroid injection x 2. The patient reports he did very well, near 80% improvement. This was on 01/21/2020. The pain now is returning in the low back, some in the legs, but mainly in the low back itself and the posterior right hip as he has had previously with ____ sacroiliac joint injection on 12/16/2019, but did very well with it for several months ____ feels more in that area of the hip than in his back and his leg as it had been. The patient reports he has been increased his activity with greater ease and comfort, walking with greater ease, traveling with greater distances, doing household work without as much pain. The patient reports over the past week; however, his pain has been a 10 on a scale of 10 at its worse on the right hip posteriorly, 8 on average, 6 at its least and is an 8 today. The patient reports it is aching, sharp, shooting, radiating, becoming more constant. Again, some pain in the leg, but very minimal compared to the right posterior hip. The patient reports no new motor or sensory deficits. Reports it awakens him from sleep at night about every 5-6 hours, especially if he lies on his right side. PHYSICAL EXAMINATION: VITAL SIGNS: The patient's blood pressure 131/73, pulse 84, respirations 16, temperature 98.3 degrees Fahrenheit, height is 6 feet, weight is 282 pounds. GENERAL: The patient is awake, alert, oriented, appropriate, very pleasant demeanor. HEENT: Shows normocephalic, atraumatic. Extraocular movements are intact and symmetrical. Oral cavity shows mucous membranes moist and pink. Dentition is intact. NECK: Shows anterior throat supple without palpable lymphadenopathy noted. Swallow reflex symmetrical. CHEST: Shows normal on inspection. On auscultation, shows no rales, rhonchi, or wheezes and clear bilaterally. HEART: Shows S1, S2 clear. ABDOMEN: Obese, but soft, nontender, nondistended. BACK: Shows spine grossly in the midline. Normal appearing thoracic kyphosis and flattening of lumbar lordotic curvature with well-healed surgical scar noted. Lumbar paraspinous muscle shows diffusely tender throughout the upper, middle and lower distribution of paraspinous muscles bilaterally, but only diffusely and only mildly. There is significant tenderness over the right posterior superior iliac spine and the right superior aspect of the sacroiliac region with even moderate palpation, very significantly tender, left side is nontender. The patient does show good rotational motion of lumbar spine laterally as well as extension and flexion without significant pain reported. EXTREMITIES: Lower extremities show deep tendon reflexes 1+ in the patellar and tendo calcaneus tendons. Motor exam is strong with 5/5 dorsiflexion, extension, quadriceps and hamstring flexion and equal. The patient does have a mild positive Gaenslen's maneuver on the right side only with posterior displacement of the right lower leg and external rotation. Left side is negative. Peripheral pulses are 1+ posterior tibia. No peripheral edema bilaterally. Options were discussed with the patient. The patient's old chart was reviewed as his current medication regimen updated. Current review of systems updated today as well. We will proceed with a right sacroiliac joint injection today with fluoroscopic guidance. Risks were again discussed including, but not limited to bleeding, infection, possibility of intravascular injection sequelae, spread of local anesthetic and numbness, side effects of steroid medication as well as poor results regarding pain control. The patient understands and wished to proceed. The patient will return to clinic in approximately 2 weeks for followup. He was counseled on return appointment, activity level and side effects to be aware of. DIAGNOSIS: Right sacroiliitis. PROCEDURE: Right sacroiliac joint injection using C-arm fluoroscopic guidance under sterile prep and drape using local anesthetic. MEDICATION INJECTED: Total of 80 mg Depo-Medrol plus 3 mL of 0.25% bupivacaine and 1.5 mL of contrast. CONDITION AT DISCHARGE: Stable. The patient tolerated procedure well, had no complications. JEREL CHURCH MD DR: VIRGEN/simon JOB#: [id number] / [id number]
== END ==
LOC: PNCL 13:21
PROVIDERS: ATTEND Anesthesiology
DX: M46.1 Sacroiliitis, not elsewhere classified (principal); M54.16 Radiculopathy, lumbar region; M48.061 Spinal stenosis, lumbar region without neurogenic claudication; M96.1 Postlaminectomy syndrome, not elsewhere classified
CPT/HCPCS: G0260; J1040; J3490; Q9965; 27096

== ENCOUNTER → 2020-04-08 | Outpatient (CLI) | payer MEDICARE, OTHER ==
[2016-04-06 14:00] VITALS: BP 131/75
[~2020-04-08] MED LIST changes: -BUPIVACAINE MPF 0.25% 10 ML VIAL. ONE; +methylPREDNISolone ACETATE 40 MG/ML VIAL. ONE
--- NOTE | 2020-04-08 11:07 | PDOC ---
Progress Note - Pain Clinic Date of Service: DOS: DATE: 04/08/20 TIME: 11:01 Diagnosis: Dx: Lumbar radiculopathy with lumbar spinal stenosis and lumbar postlaminectomy syndrome Bilateral sacroiliitis History or Present Illness: HPI: 69-year-old male returns for follow-up status post lumbar epidural steroid injection x2. And sacroiliac joint injection on the right on March 17, 2020 patient reports near 110 improvement with the right sacroiliac joint injection initially and for the first week now is about 80% improvement overall. Patient's main complaint is low back pain with bilateral lower extremity pain more on the right than the left rating the anterior thigh anterior groin lateral thigh as well as into the back bilaterally. This worse with standing walking especially standing from a seated position where he needs to stop and wait for the pain to subside after he stands up for a few seconds before walking. Patient rates his pain is a 10 on a scale of 10 is worse over the past week 8 on average 8 is least as an 8 today. Patient describes the pain is aching dull shooting burning radiating unbearable at times but still better with sitting or laying down generally not awaken him from sleep at night but has over the past few days. Reports no new motor or sensory deficits no new bowel or bladder incontinence or other complaints. Physical Exam: VS: Blood pressure 131/79 pulse 81 respirations 18 temperature 98.5 F weight is 2 8 0 pounds PE: PHYSICAL EXAMINATION: GENERAL: The patient is awake, alert, oriented, appropriate, very pleasant demeanor HEENT: Shows normocephalic, atraumatic. Extraocular movements are intact and symmetrical. Oral cavity: Mucous membranes moist and pink. Dentition is intact. NECK: Shows anterior throat supple without palpable lymphadenopathy noted. Swallow reflex symmetrical. CHEST: Shows normal on inspection. Breath sounds are clear bilaterally no rales rhonchi or wheezes auscultated. HEART: Shows S1, S2 clear. No murmurs auscultated. ABDOMEN: Soft, nontender, nondistended. No palpable organomegaly is noted. No rebound demonstrated. BACK: Shows spine grossly in the midline. Normal-appearing cervical lordotic curvature. There is slightly increased thoracic kyphosis, some minor flattening of the lumbar lordotic curvature. Lumbar paraspinous muscles show symmetrical on inspection, on palpation shows some moderate tenderness diffusely throughout the upper, middle and lower distribution of the paraspinous muscles without specific trigger points, without radiation of pain. The patient has good rotational motion of the lumbar spine, both laterally as well as extension and flexion without significant difficulty. No tenderness over the spinous processes, sacrum or sacroiliac regions. EXTREMITIES: Lower extremities show deep tendon reflexes 1+ in the patellar and tendo calcaneus tendons. Motor exam is 5 on a scale of 5 with right dorsiflexion, extension, quadriceps and hamstring flexion and 5/5 on the left. Peripheral pulses are 1+ posterior tibial. No peripheral edema is noted bilaterally. Lower extremities are warm and dry to touch, equal in color and appearance. The patient is able to stand stand on his toes without significant difficulty or loss of balance walks with a slight favoring gait favors the right lower extremity mildly but not use any assistive device such as canes or walker to ambulate. SKIN: Shows warm and dry, good turgor. No edema. No sores, rashes or bruising throughout. Options were discussed with the patient. The patient's old chart was reviewed and current medication regimen updated. [] Procedure: Procedure: Options were discussed with the patient. Patient's old chart was reviewed his his current medication regimen updated current review of systems updated today as well. We will proceed with a third lumbar epidural steroid injection today with fluoroscopic guidance. Risks were again discussed including but not limited to bleeding infection possibility of epidural hematoma and subsequent n eurological compromise dural puncture headache spinal cord and or nerve damage side effects of steroid medication and poor results rating pain control. Patient understands wished to proceed. Patient return to clinic in approximately 2 weeks or as necessary. Patient is counseled as to activity level as well as side effects to be aware. Medication Injected: Med Injected: Procedure is lumbar epidural steroid injection under local anesthetic using sterile prep and drape at the L4-5 level using C-arm fluoroscopic guidance in both AP and lateral views medications injected is 120 mg Depo-Medrol +[]mL pre servative-free normal saline and 2 mL Isovue for contrast- condition at discharge is stable patient tolerated procedure well had no complications. Condition at Discharge: Condition at Discharge: Patient was discharged in stable condition under his own power with no immediate complications noted. JEREL CHURCH MD Apr 08, 2020 11:07
== END | disposition home or self-care (01) ==
LOC: PNCL 09:58
PROVIDERS: ATTEND Anesthesiology
DX: M48.061 Spinal stenosis, lumbar region without neurogenic claudication (principal); M96.1 Postlaminectomy syndrome, not elsewhere classified; M46.1 Sacroiliitis, not elsewhere classified; M54.16 Radiculopathy, lumbar region; Z87.891 Personal history of nicotine dependence; Z79.899 Other long term (current) drug therapy
CPT/HCPCS: 62323; J1030; J1040; Q9965

== ENCOUNTER → 2020-05-13 | Outpatient (CLI) | payer MEDICARE, OTHER ==
[2016-04-06 14:00] VITALS: BP 131/75
[~2020-05-13] MED LIST changes: +BUPIVACAINE MPF 0.25% 10 ML VIAL. ONE
--- NOTE | 2020-05-13 08:35 | PDOC ---
Progress Note - Pain Clinic Date of Service: DOS: DATE: 05/13/20 TIME: 08:29 Diagnosis: Dx: Lumbar radiculopathy with lumbar spinal stenosis and lumbar postlaminectomy syndrome Bilateral sacroiliitis History or Present Illness: HPI: 69-year-old male returns follow-up status post lumbar epidural straight injections x3. Last injection was on April 08, 2020 patient reports he did very well with this with about 80% improvement pain is returning now in the low back and bilaterally in the posterior hips. Patient had sacroiliitis as well in the past and this is been flaring up by his report as he been moving some furniture lately having some work done in the house and some painting and this is because the pain increased starting to read in the right lower extremity as well but o nly very minimally regarding the lumbar epidural he is doing very well increasing his distance walking doing work activities household activities try with greater ease and comfort sleeping better at night but the pain in the posterior hips is getting awaken him from sleep about once or twice a night. Patient rates his pain over the past week and a 10 on scale 10 is worst 8 on average 5 its least is a 5 today patient describes an aching and shooting radiating leg on the right minimally at this point but bilaterally in the posterior low back and hips. Patient reports no new motor or sensory deficits no new bowel or bladder incontinence or other complaints. Physical Exam: VS: Blood pressure is 133/65 pulse 89 respirations are 16 temperature is 98.1 F height is 6 foot weight is 282 pounds PE: PHYSICAL EXAMINATION: GENERAL: The patient is awake, alert, oriented, appropriate, very pleasant demeanor HEENT: Shows normocephalic, atraumatic. Extraocular movements are intact and symmetrical. Oral cavity: Mucous membranes moist and pink. NECK: Shows anterior throat supple without palpable lymphadenopathy noted. Swallow reflex symmetrical. CHEST: Shows normal on inspection. Breath sounds are clear bilaterally, no rales rhonchi or wheezes auscultated. HEART: Shows S1, S2 clear. No murmurs auscultated. ABDOMEN: Soft, nontender, nondistended, obese. No palpable organomegaly is noted. No rebound or guarding demonstrated. BACK: Shows spine grossly in the midline. Normal-appearing cervical lordotic curvature. There is slightly increased thoracic kyphosis, some minor flattening of the lumbar lordotic curvature. Lumbar paraspinous muscles show symmetrical on inspection, on palpation shows some moderate tenderness diffusely throughout the upper, middle and lower distribution of the paraspinous muscles bilaterally, but without specific trigger points, without radiation of pain. The patient has good rotational motion of the lumbar spine, both laterally as well as extension and flexion without significant difficulty. No tenderness over the spinous processes, but with palpation over the posterior superior iliac spines and especially on the right the posterior aspect of the superior sacroiliac joint very tender with palpation but without specific radiation left side is tender as well moderately but right side much more severely tender. EXTREMITIES: Lower extremities show deep tendon reflexes 1+ in the patellar and tendo calcaneus tendons. Motor exam is 5 on a scale of 5 with right dorsiflexion, extension, quadriceps and hamstring flexion and 5/5 on the left. Peripheral pulses are 1+ posterior tibial. No peripheral edema is noted bilaterally. Lower extremities are warm and dry to touch, equal in color and appearance. SKIN: Shows warm and dry, good turgor. No edema. No sores, rashes or bruising throughout. Procedure: Procedure: Options were discussed with the patient. Patient will chart reviewed his his current medication regimen updated current review of systems updated today as well. We will proceed with bilateral sacroiliac joint injections today with fluoroscopic guidance. Risks are discussed including but not limited to: bleeding, infection, possibility of intravascular injection and sequelae, spread of local anesthetic and numbness, side effects of steroid medication and poor results regarding pain control. Patient understands wished to proceed patient return to clinic in approximately 2 weeks for follow-up was counseled as to return appointment activity level and side effects to be aware of. Medication Injected: Med Injected: Under sterile prep and drape using C-arm fluoroscopic guidance, bilateral sacroiliac joints injected using 3 cc 0.25% bupivacaine +80 mg Depo-Medrol +1.5 cc contrast on each sacroiliac joint. Condition at discharge is stable, patient tolerated procedure well and had no complications. Condition at Discharge: Condition at Discharge: Condition at discharge is stable patient tolerated procedure had no complications JEREL CHURCH MD May 13, 2020 08:35
== END | disposition home or self-care (01) ==
LOC: PNCL 07:54
PROVIDERS: ATTEND Anesthesiology
DX: M46.1 Sacroiliitis, not elsewhere classified (principal); M48.061 Spinal stenosis, lumbar region without neurogenic claudication; M96.1 Postlaminectomy syndrome, not elsewhere classified; M54.16 Radiculopathy, lumbar region; Z87.891 Personal history of nicotine dependence; Z79.899 Other long term (current) drug therapy
CPT/HCPCS: G0260; J1030; J1040; J3490; Q9965; 27096

== ENCOUNTER → 2020-09-08 | Outpatient (CLI) | payer MEDICARE, OTHER ==
[2016-04-06 14:00] VITALS: BP 131/75
[~2020-09-08] MED LIST changes: +AMLO-186 PO; -AMLO5TAB10 PO; -BUPIVACAINE MPF 0.25% 10 ML VIAL. ONE; -LISI-334 PO; +LISI20TA18 PO
--- NOTE | 2020-09-08 08:52 | PDOC ---
Progress Note - Pain Clinic Date of Service: DOS: DATE: 09/08/20 TIME: 08:49 Diagnosis: Dx: Lumbar radiculopathy with lumbar spinal stenosis and lumbar postlaminectomy syndrome Bilateral sacroiliitis History or Present Illness: HPI: 69-year-old male returns follow-up status post lumbar epidural steroid injection x1. Patient reports about 80% improvement for the first month pain returning now over the past week or so in the low back and bilateral lower extremities slightly worse on the right than the left patient reports some tingling in the feet on the left greater than right patient reports is aching and sharp shooting tingling in the feet stabbing and radiating in the low back shooting and radiating to the lower extremity and sometimes unbearable and severe with activity patient reports is better with sitting or laying down wakes him at least twice a night over the past few weeks but before that was doing much better with distance walking doing household activities sleeping better. Patient rates his pain as a 10 on scale 10 is worse over the past week 8 on average 6 its least and is a 6 today. Patient reports no new motor or sensory deficits no new bowel or bladder incontinence or other complaints. Physical Exam: VS: Blood pressure is 133/83 pulse 87 respirations 16 temperature 98.1 height 6 foot weight 279 pounds PE: PHYSICAL EXAMINATION: GENERAL: The patient is awake, alert, oriented, appropriate, very pleasant demeanor HEENT: Shows normocephalic, atraumatic. Extraocular movements are intact and symmetrical. NECK: Shows anterior throat supple without palpable lymphadenopathy noted. Swallow reflex symmetrical. CHEST: Shows normal on inspection. Breath sounds are clear bilaterally. HEART: Shows S1, S2 clear. No murmurs auscultated. ABDOMEN: Soft, nontender, nondistended, obese. No palpable organomegaly is noted. No rebound or guarding demonstrated. BACK: Shows spine grossly in the midline. Normal-appearing cervical lordotic curvature. There is slightly increased thoracic kyphosis, some minor flattening of the lumbar lordotic curvature. Well-healed surgical scar is noted in the midline. Lumbar paraspinous muscles show symmetrical on inspection, on palpation shows some moderate tenderness diffusely throughout the upper, middle and lower distribution of the paraspinous muscles, but without specific trigger points, without radiation of pain. The patient has good rotational motion of the lumbar spine, both laterally as well as extension and flexion without significant difficulty. No tenderness over the spinous processes, sacrum or sacroiliac regions. EXTREMITIES: Lower extremities show deep tendon reflexes 1+ in the patellar and tendo calcaneus tendons. Motor exam is 5 on a scale of 5 with right dorsiflexion, extension, quadriceps and hamstring flexion and 5/5 on the left. Peripheral pulses are 1+ posterior tibial. No peripheral edema is noted bilaterally. Lower extremities are warm and dry to touch, equal in color and appearance. SKIN: Shows warm and dry, good turgor. No edema. No sores, rashes or bruising throughout. Procedure: Procedure: Options were discussed with the patient. Patient chart reviewed his current medication regimen updated current review of systems updated today as well. We will proceed with a second in the series lumbar epidural steroid injection today with fluoroscopic guidance. Risks were discussed including but not limited to: Bleeding, infection, possibility of epidural hematoma and subsequent neurol ogical compromise, dural puncture, headaches, spinal cord and/or nerve damage, side effects of steroid medication, and poor results regarding pain control. Patient understands wished to proceed. Patient return to clinic in approximate 2 weeks for follow-up, was counseled as to return appointment activity level, and side effects to be aware of. Medication Injected: Med Injected: Procedure is lumbar epidural steroid injection under local anesthetic using sterile prep and drape at the L4-5 level using C-arm fluoroscopic guidance in both AP and lateral views medications injected is 120 mg Depo-Medrol + 10 mL preservative-free normal saline and 2 mL contrast- condition at discharge is stable patient tolerated procedure well had no complications. Condition at Discharge: Condition at Discharge: Condition at discharge stable, patient tolerated procedure well, and had no complications. JEREL CHURCH MD Sep 08, 2020 08:52
== END | disposition home or self-care (01) ==
LOC: PNCL 07:58
PROVIDERS: ATTEND Anesthesiology
DX: M54.16 Radiculopathy, lumbar region (principal); M48.061 Spinal stenosis, lumbar region without neurogenic claudication; M96.1 Postlaminectomy syndrome, not elsewhere classified; M46.1 Sacroiliitis, not elsewhere classified; I10 Essential (primary) hypertension; E11.39 Type 2 diabetes mellitus with other diabetic ophthalmic complication; E78.00 Pure hypercholesterolemia, unspecified; F41.9 Anxiety disorder, unspecified; E11.51 Type 2 diabetes mellitus with diabetic peripheral angiopathy without gangrene; F32.9 Major depressive disorder, single episode, unspecified; E03.9 Hypothyroidism, unspecified; M19.90 Unspecified osteoarthritis, unspecified site; F17.200 Nicotine dependence, unspecified, uncomplicated; Z79.84 Long term (current) use of oral hypoglycemic drugs; Z79.899 Other long term (current) drug therapy; Z96.652 Presence of left artificial knee joint; Z90.49 Acquired absence of other specified parts of digestive tract
CPT/HCPCS: 62323; J1030; J1040; Q9965

== ENCOUNTER → 2020-11-02 | Outpatient (CLI) | payer MEDICARE, OTHER ==
[2016-04-06 14:00] VITALS: BP 131/75
--- NOTE | 2020-11-02 09:25 | PDOC ---
Progress Note - Pain Clinic Date of Service: DOS: DATE: 11/02/20 TIME: 09:22 Diagnosis: Dx: Lumbar radiculopathy with lumbar spinal stenosis and lumbar postlaminectomy syndrome Bilateral sacroiliitis History or Present Illness: HPI: 70-year-old male returns follow-up status post lumbar epidural steroid traction x2. Patient reports about 80% improvement after last injection which was September 08, 2020 patient reports still pain returning on the low back and into the right lower extremity posterior gluteus posterior lateral thigh anterior thigh medial thigh patient reports also some pain in the base the neck and shoulders with some weakness in his left arm. Patient rates his pain is back as a stabbing pain aching and sharp and shooting in the right lower extremity some on the left side as well but much worse on the right patient reports is worse with walking standing better with sitting or laying down occasionally wakes him from sleep more than every 5-6 hours patient rates his pain is a 10 on scale 10 is worse over the past week 8 on average 6 its least is an 8 today. Patient reports no new motor or sensory deficits no new bowel or bladder incontinence or other complaints. Physical Exam: VS: Blood pressure is 142/77 pulse 85 respirations 18 temperature 97.9 F height is 6 foot weight is 283 pounds PE: PHYSICAL EXAMINATION: GENERAL: The patient is awake, alert, oriented, appropriate, very pleasant demeanor HEENT: Shows normocephalic, atraumatic. Extraocular movements are intact and symmetrical. Oral cavity: Mucous membranes moist and pink. NECK: Shows anterior throat supple without palpable lymphadenopathy noted. Swallow reflex symmetrical. CHEST: Shows normal on inspection. Breath sounds are clear bilaterally, distant but no rales or rhonchi. HEART: Shows S1, S2 clear. No murmurs auscultated. ABDOMEN: Soft, nontender, nondistended, obese. No palpable organomegaly is noted. BACK: Shows spine grossly in the midline. Normal-appearing cervical lordotic curvature. There is slightly increased thoracic kyphosis, some minor flattening of the lumbar lordotic curvature. Lumbar paraspinous muscles show symmetrical on inspection, on palpation shows some moderate tenderness diffusely throughout the upper, middle and lower distribution of the paraspinous muscles, but without specific trigger points, without radiation of pain. The patient has good rot ational motion of the lumbar spine, both laterally as well as extension and flexion without significant difficulty. EXTREMITIES: Lower extremities show deep tendon reflexes 1+ in the patellar and tendo calcaneus tendons. Motor exam is 5 on a scale of 5 with right dorsiflexion, extension, quadriceps and hamstring flexion and 5/5 on the left. Peripheral pulses are 1+ posterior tibial. No peripheral edema is noted bilaterally. Lower extremities are warm and dry to touch, equal in color and appearance. SKIN: Shows warm and dry, good turgor. No edema. No sores, rashes or bruising throughout. Procedure: Procedure: Options discussed with the patient. Patient old chart was reviewed as was his current medication list and review of systems reviewed today as well. We will proceed with a lumbar epidural steroid injection today is the third in a series with fluoroscopic guidance. Risks were discussed including but not limited to: Bleeding, infection, possibility of epidural hematoma and subsequent neurological compromise, dural puncture, headaches, spinal cord and/or nerve damage, side effects of steroid medication, and poor results regarding pain control. Patient understands and wished to proceed. Return to clinic in approximate 2 weeks for follow-up, was counseled as to return appointment to fill and side effects to be aware of. We will also get CT scan of the cervical spine to better assess the radicular quality pain he has in the upper extremities Medication Injected: Med Injected: Procedure is lumbar epidural steroid injection under local anesthetic using sterile prep and drape at the L4-5 level using C-arm fluoroscopic guidance in both AP and lateral views medications injected is 120 mg Depo-Medrol + 10 mL preservative-free normal saline and 2 mL contrast- condition at discharge is stable patient tolerated procedure well had no complications. Condition at Discharge: Condition at Discharge: Condition at discharge stable, patient alert procedure well and had no complications. JEREL CHURCH MD Nov 02, 2020 09:25
--- NOTE | 2020-11-02 09:26 | PDOC4 ---
PROCEDURE Procedure Patient was consented for lumbar epidural steroid injection. Risks were dis cussed including but not limited to: Bleeding, infection, possibility of epidural hematoma and subsequent neurological compromise, dural puncture, headaches, spinal cord and/or nerve damage, side effects of steroid medication, and poor results regarding pain control. Patient understands and wished to proceed. Procedure is lumbar epidural steroid injection under local anesthetic using sterile prep and drape at the L4-5 level using C-arm fluoroscopic guidance in both AP and lateral views medications injected is 120 mg Depo-Medrol + 10 mL preservative-free normal saline and 2 mL contrast- condition at discharge is stable patient tolerated procedure well had no complications. JEREL CHURCH MD Nov 02, 2020 09:26
== END | disposition home or self-care (01) ==
LOC: PNCL 08:00
PROVIDERS: ATTEND Anesthesiology
DX: M54.16 Radiculopathy, lumbar region (principal); M48.061 Spinal stenosis, lumbar region without neurogenic claudication; M96.1 Postlaminectomy syndrome, not elsewhere classified; M46.1 Sacroiliitis, not elsewhere classified; E78.00 Pure hypercholesterolemia, unspecified; I10 Essential (primary) hypertension; E03.9 Hypothyroidism, unspecified; E11.9 Type 2 diabetes mellitus without complications; F41.9 Anxiety disorder, unspecified; F32.9 Major depressive disorder, single episode, unspecified; M19.90 Unspecified osteoarthritis, unspecified site; Z90.49 Acquired absence of other specified parts of digestive tract; Z98.890 Other specified postprocedural states; Z79.899 Other long term (current) drug therapy; Z79.84 Long term (current) use of oral hypoglycemic drugs; Z87.891 Personal history of nicotine dependence
CPT/HCPCS: 62323; J1030; J1040; Q9965

== ENCOUNTER → 2020-11-07 | Outpatient (CLI) | payer MEDICARE, OTHER ==
[2016-04-06 14:00] VITALS: BP 131/75
[~2020-11-07] MED LIST changes: -IOHEXOL 180 MG/ML 10 ML VIAL. ONE; -methylPREDNISolone ACETATE 40 MG/ML VIAL. ONE; -methylPREDNISolone ACETATE 80 MG/ML VIAL. ONE
--- NOTE | 2020-11-07 09:38 | RAD ---
CT scan of the cervical spine without contrast 11/07/2020 Clinical history: Neck pain. Technique: Unenhanced, contiguous, 0.625 mm axial sections were obtained through the cervical spine. 3 mm reconstructed axial and 3 mm coronal and sagittal reconstructed images were obtained. One or more of the following individualized dose reduction techniques were utilized for this study: 1. Automated exposure control. 2. Adjustment of the mA and/or kV according to patient size. 3. Use of iterative reconstruction technique. Findings: Sagittal and coronal reconstructed images demonstrate minimal lateral curvature of the cerv ical spine, convex to the left. There is straightening of the normal cervical lordosis. Degenerative changes consisting of vertebral endplate sclerosis and mild to moderate anterior vertebral body osteo phyte formation are seen throughout the cervical disc spaces. Moderate atherosclerotic plaque formati on is seen in the region of the carotid bifurcations. No fracture or subluxation of the cervical vertebrae is seen. Degenerative changes are seen throughout the cervical disc spaces consisting of minimal to mild gener alized disc bulges and degenerative changes involving the uncovertebral and facet joints. These findi ngs do not result in definite areas of significant central spinal canal stenosis. Mild to moderate ri ght neural foraminal stenosis is seen at C5-6. Impression: Degenerative changes are seen involving the cervical spine as discussed above. These find ings do not result in significant central spinal canal stenosis at any level. Mild to moderate right neural foraminal stenosis is seen at C5-6. Electronically signed by: Rony Barger MD (11/07/2020 9:36 AM) [id number]
== END | disposition home or self-care (01) ==
LOC: CT 08:37
PROVIDERS: ATTEND Anesthesiology
DX: M54.2 Cervicalgia (principal); M48.02 Spinal stenosis, cervical region; E78.00 Pure hypercholesterolemia, unspecified; I10 Essential (primary) hypertension; E11.9 Type 2 diabetes mellitus without complications; E03.9 Hypothyroidism, unspecified; M19.90 Unspecified osteoarthritis, unspecified site; F41.9 Anxiety disorder, unspecified; F32.9 Major depressive disorder, single episode, unspecified; Z90.49 Acquired absence of other specified parts of digestive tract; Z98.890 Other specified postprocedural states; Z79.899 Other long term (current) drug therapy; Z79.84 Long term (current) use of oral hypoglycemic drugs; Z87.891 Personal history of nicotine dependence; Z88.8 Allergy status to other drugs, medicaments and biological substances
CPT/HCPCS: 72125

== ENCOUNTER → 2020-11-23 | Outpatient (CLI) | payer MEDICARE, OTHER ==
[2016-04-06 14:00] VITALS: BP 131/75
[~2020-11-23] MED LIST changes: +BUPIVACAINE MPF 0.25% 10 ML VIAL. ONE; +IOHEXOL 180 MG/ML 10 ML VIAL. ONE; +methylPREDNISolone ACETATE 80 MG/ML VIAL. ONE
--- NOTE | 2020-11-23 09:15 | PDOC ---
Progress Note - Pain Clinic Date of Service: DOS: DATE: 11/23/20 TIME: 09:11 Diagnosis: Dx: Lumbar radiculopathy with lumbar spinal stenosis and lumbar postlaminectomy syndrome Bilateral sacroiliitis History or Present Illness: HPI: 30-year-old male returns follow-up status post lumbar epidural steroid injections x3 most recently November 02, 2020. Patient reports he did well with about a 80% improvement following the injection but the pain is significant in the low back on the right side now which is different than previous patient reports still significant pain the base the neck and shoulders mainly in the left upper extremity in the bicep worse with sleeping and reaching and weightbearing patient reports repetitive motions are difficult also reaching over his head is difficult with the left arm only and he does feel weak. Regarding patient's low back patient reports that is his worst complaint is w orse on the right side than the left is a 10 on scale 10 is worse over the past week 8 on average 8 its least is an 8 today. Patient scribes pain is aching and sharp shooting stabbing radiating in the right side low back specially with extension of the lumbar spine and standing and getting up from a seated position. Patient reports no new motor or sensory deficits no new bowel or bladder incontinence. Physical Exam: VS: Blood pressure is 135/74 pulse 81 respirations 20 temperature 98.1 F height is 6 foot weight is 283 pounds PE: PHYSICAL EXAMINATION: GENERAL: The patient is awake, alert, oriented, appropriate, very pleasant demeanor HEENT: Shows normocephalic, atraumatic. Extraocular movements are intact and symmetrical. Oral cavity: Mucous membranes moist and pink. NECK: Shows anterior throat supple without palpable lymphadenopathy noted. Swallow reflex symmetrical. CHEST: Shows normal on inspection. Breath sounds are clear bilaterally, no rale s or rhonchi. HEART: Shows S1, S2 clear. No murmurs auscultated. ABDOMEN: Soft, nontender, nondistended, obese. No palpable organomegaly is noted. No rebound or guarding demonstrated. BACK: Shows spine grossly in the midline. Normal-appearing cervical lordotic curvature. There is slightly increased thoracic kyphosis, some minor flattening of the lumbar lordotic curvature, with well-healed midline surgical scarring. Lumbar paraspinous muscles show symmetrical on inspection, on palpation shows some moderate tenderness diffusely throughout the upper, middle and lower distribution of the paraspinous muscles without specific trigger points, without radiation of pain. The patient has good rotational motion of the lumbar spine, both laterally as well as extension and flexion without significant difficulty. Patient shows significant tenderness over the posterior superior iliac spine on the right and the mid upper distribution of the sacroiliac joint left side is nontender. EXTREMITIES: Lower extremities show deep tendon reflexes 1+ in the patellar and tendo calcaneus tendons. Motor exam is 5 on a scale of 5 with right dorsiflexion, extension, quadriceps and hamstring flexion and 5/5 on the left. Peripheral pulses are 1+ posterior tibial. No peripheral edema is noted bilaterally. Lower extremities are warm and dry to touch, equal in color and appearance. Patient has a moderately positive Gaenslen's maneuver on the right side only. SKIN: Shows warm and dry, good turgor. No edema. No sores, rashes or bruising throughout. Procedure: Procedure: Options were discussed with the patient. Patient chart reviews his current medication regimen updated current review of systems updated today as well. We will proceed with a right sacroiliac joint injection today with fluoroscopic guidance. Risk were discussed including but not limited to bleeding infection possibility of intravascular injection sequelae spread local anesthetic numbness side effects of steroid medication special fluoroscopy and portals regarding pain control. Patient understands wished to proceed. Patient return to clinic in approximately 3 weeks for follow-up was counseled as to return appointment activity level and side effects to be aware of. Patient also given refill of hydrocodone 5 mg with instructions side effects to be aware of. Medication Injected: Med Injected: Under sterile prep and drape using C-arm fluoroscopic guidance, right sacroiliac joint injected using 3 cc 0.25% bupivacaine +80 mg Depo-Medrol +2 cc contrast. Condition at discharge is stable, patient tolerated procedure well and had no complications. Condition at Discharge: Condition at Discharge: Condition at discharge stable, patient already procedure well had no complications. JEREL CHURCH MD Nov 23, 2020 09:15
--- NOTE | 2020-11-23 09:16 | PDOC4 ---
PROCEDURE Procedure Patient was consented for right sacroiliac joint injection. Risks were disc ussed including not limited to bleeding infection possibility of intravascular injection sequelae spread local anesthetic numbness side effects steroid medication exposure fluoroscopy and portals rating pain control. She understands wished to proceed. Under sterile prep and drape using C-arm fluoroscopic guidance, right sacroiliac joint injected using 3 cc 0.25% bupivacaine +80 mg Depo-Medrol +2 cc contrast. Condition at discharge is stable, patient tolerated procedure well and had no complications. JEREL CHURCH MD Nov 23, 2020 09:16
== END | disposition home or self-care (01) ==
LOC: PNCL 08:31
PROVIDERS: ATTEND Anesthesiology
DX: M46.1 Sacroiliitis, not elsewhere classified (principal); M54.16 Radiculopathy, lumbar region; M48.061 Spinal stenosis, lumbar region without neurogenic claudication; M96.1 Postlaminectomy syndrome, not elsewhere classified; I10 Essential (primary) hypertension; E78.00 Pure hypercholesterolemia, unspecified; M19.90 Unspecified osteoarthritis, unspecified site; F41.9 Anxiety disorder, unspecified; F32.9 Major depressive disorder, single episode, unspecified; E11.9 Type 2 diabetes mellitus without complications; E03.9 Hypothyroidism, unspecified; Z90.49 Acquired absence of other specified parts of digestive tract; Z98.890 Other specified postprocedural states; Z79.899 Other long term (current) drug therapy; Z79.84 Long term (current) use of oral hypoglycemic drugs; Z87.891 Personal history of nicotine dependence
CPT/HCPCS: G0260; J1040; J3490; Q9965; 77002; 27096

== ENCOUNTER → 2021-01-02 | Outpatient (CLI) | payer MEDICARE, OTHER ==
[2016-04-06 14:00] VITALS: BP 131/75
[~2021-01-02] MED LIST changes: -BUPIVACAINE MPF 0.25% 10 ML VIAL. ONE; +methylPREDNISolone ACETATE 40 MG/ML VIAL. ONE
--- NOTE | 2021-01-02 09:53 | PDOC ---
Progress Note - Pain Clinic Date of Service: DOS: DATE: 01/02/21 TIME: 09:48 Diagnosis: Dx: Cervical radiculopathy with cervical degenerative disc disease Lumbar radiculopathy lumbar spinal stenosis lumbar postlaminectomy syndrome Bilateral sacroiliitis History or Present Illness: HPI: 70-year-old male returns for follow-up status post right sacroiliac joint injection about 70% improvement for the least 2 weeks following the injection. Patient reports now chief complaint is neck and left upper extremity pain we had a CT scan of his neck done before his last visit and discussed this with he and his showing some foraminal stenosis at C56 without any other significant herniations or other abnormalities. Patient reports still significant pain base the neck and the left shoulder especially in the left arm in the bicep region in the forearm with radiating pain patient scribes a tingling and burning aching and sharp in the neck shooting in the right and left arms mostly on the left constant and unbearable at times. Patient reports his strength is decreased in his left arm as well especially in the biceps with lifting items. Patient reports still some pain in the posterior sacroiliac region on the right but is much less after last injection his chief complaint is neck and left upper extremity pain. Patient reports no new motor or sensory deficits no new bowel or bladder incontinence or other complaints. Physical Exam: VS: Blood pressure is 132/73 pulse 94 respirations 18 temperature 90.2 F height is 6 foot weight is 290 pounds PE: PHYSICAL EXAMINATION: GENERAL: The patient is awake, alert, oriented, appropriate, very pleasant demeanor HEENT: Shows normocephalic, atraumatic. Extraocular movements are intact and symmetrical. Patient wearing eyeglasses. Oral cavity: Mucous membranes moist and pink. NECK: Shows anterior throat supple without palpable lymphadenopathy noted. Swallow reflex symmetrical. CHEST: Shows normal on inspection. Breath sounds are clear bilaterally, distant but no rales or rhonchi. HEART: Shows S1, S2 clear. No murmurs auscultated. ABDOMEN: Soft, nontender, nondistended, obese. No palpable organomegaly is noted. No rebound or guarding demonstrated. BACK: Shows spine grossly in the midline. Normal-appearing cervical lordotic curvature. Cervical paraspinous muscles show symmetrical with inspection on palpation some moderate tenderness diffusely bilaterally diffusely without significant radiation. Patient is good rotation motion cervical spine both laterally as well as extension flexion without significant increase in pain. There is slightly increased thoracic kyphosis, some minor flattening of the lumbar lordotic curvature. Lumbar paraspinous muscles show symmetrical on inspection, on palpation shows some moderate tenderness diffusely throughout the upper, middle and lower distribution of the paraspinous muscles without specific trigger points, without radiation of pain. The patient has good rotational motion of the lumbar spine, both laterally as well as extension and flexion without significant difficulty. Patient has significant tenderness over the right posterior superior iliac spine, as well as the superior aspect of the sacroiliac joint. Nontender on the left. EXTREMITIES: Lower extremities show deep tendon reflexes 1+ in the patellar and tendo calcaneus tendons. Motor exam is 5 on a scale of 5 with right dorsi flexion, extension, quadriceps and hamstring flexion and 5/5 on the left. Peripheral pulses are 1+ posterior tibial. No peripheral edema is noted bilaterally. Lower extremities are warm and dry to touch, equal in color and appearance. Upper extremity show deep tendon reflexes 2+ in the bicep tricep tendons motor exam is grossly 4 to scale 5 left and 5/5 on the right with biceps and triceps flexion shoulder shrug strong and intact without loss of strength on resistance as is abduction of the shoulder 90 degrees bilaterally. Peripheral pulses are 2+ radial no peripheral edema is noted bilaterally. SKIN: Shows warm and dry, good turgor. No edema. No sores, rashes or bruising throughout. Procedure: Procedure: Options were discussed the patient. Patient's old chart was reviewed his current medication regimen updated current review of systems updated today as well. We will proceed with a cervical epidural steroid injection today with fluoroscopic guidance. Risks were discussed including but not limited to: Bleeding, infection, possibility of epidural hematoma and subsequent neurological compromise, dural puncture, headaches, spinal cord and/or nerve damage, side effects of steroid medication, and poor results regarding pain control. Patient understands and wished to proceed. Patient will return to the clinic in approximately 2 weeks for follow-up, was counseled as return appointment activity level and side effects to be aware of. Medication Injected: Med Injected: Procedure cervical epidural steroid injection at the C6-7 level, using local anesthetic under sterile prep and drape using C-arm fluoroscopic guidance under local anesthesia medications injected ; 120 mg Depo-Medrol + 5 mL normal saline and 2 mL contrast; condition at discharge is stable patient tolerated procedure well. and had no complications Condition at Discharge: Condition at Discharge: Condition at discharge is stable, patient already procedure well and had no complications. JEREL CHURCH MD January 02, 2021 09:53
--- NOTE | 2021-01-02 09:53 | PDOC4 ---
PROCEDURE Procedure Patient was consented for cervical epidural steroid injection. Risks were d iscussed including but not limited to: Bleeding, infection, possibility of epidural hematoma and subsequent neurological compromise, dural puncture, headaches, spinal cord and/or nerve damage, side effects of steroid medication, and poor results regarding pain control. Patient understands and wished to proceed. Procedure cervical epidural steroid injection at the C6-7 level, using local anesthetic under sterile prep and drape using C-arm fluoroscopic guidance under local anesthesia medications injected ; 120 mg Depo-Medrol + 5 mL normal saline and 2 mL contrast; condition at discharge is stable patient tolerated procedure well. and had no complications JEREL CHURCH MD January 02, 2021 09:53
== END | disposition home or self-care (01) ==
LOC: PNCL 09:03
PROVIDERS: ATTEND Anesthesiology
DX: M50.10 Cervical disc disorder with radiculopathy, unspecified cervical region (principal); M48.061 Spinal stenosis, lumbar region without neurogenic claudication; M96.1 Postlaminectomy syndrome, not elsewhere classified; M46.1 Sacroiliitis, not elsewhere classified; I10 Essential (primary) hypertension; E78.00 Pure hypercholesterolemia, unspecified; E11.9 Type 2 diabetes mellitus without complications; E03.9 Hypothyroidism, unspecified; M19.90 Unspecified osteoarthritis, unspecified site; F41.9 Anxiety disorder, unspecified; F32.9 Major depressive disorder, single episode, unspecified; Z79.84 Long term (current) use of oral hypoglycemic drugs; Z79.899 Other long term (current) drug therapy; Z90.49 Acquired absence of other specified parts of digestive tract; Z98.890 Other specified postprocedural states; Z87.891 Personal history of nicotine dependence
CPT/HCPCS: 62321; J1030; J1040; Q9965

== ENCOUNTER → 2021-01-13 | Outpatient (CLI) | payer MEDICARE, OTHER ==
[2016-04-06 14:00] VITALS: BP 131/75
[~2021-01-13] MED LIST changes: +BUPIVACAINE MPF 0.25% 30 ML VIAL. ONE; -methylPREDNISolone ACETATE 80 MG/ML VIAL. ONE
--- NOTE | 2021-01-13 10:54 | PDOC ---
Progress Note - Pain Clinic Date of Service: DOS: DATE: 01/13/21 TIME: 10:51 Diagnosis: Dx: Lumbar radiculopathy with lumbar spinal stenosis and lumbar postlaminectomy syndrome Bilateral sacroiliitis Cervical radiculopathy with cervical degenerative disc disease History or Present Illness: HPI: 70-year-old male returns for follow-up status post cervical epidural steroid injection x1 on 01/02/2021. Patient reports about 75% improvement in the base the neck and shoulder pain patient is chief complaint is right posterior hip pain however consistent with some sacroiliitis that he has had in the past patient reports his pain in the back is a 10 on scale 10 is worst 8 on average 6 its least is a 7 today patient reports its tingling and burning aching sharp shooting at times in the back itself but not into the lower extremity and can be unbearable with standing and walking. Patient ports his neck and shoulders are much better though he is increase his activity with greater distance walking doing household activities with sleeping better at night as well. Patient reports no new motor or sensory deficits no new bowel or bladder complaints or other complaints. Physical Exam: VS: Blood pressure is 136/74 pulse 77 respiration 16 temperature 98.4 F height 6 foot weight is 293 pounds PE: PHYSICAL EXAMINATION: GENERAL: The patient is awake, alert, oriented, appropriate, very pleasant demeanor HEENT: Shows normocephalic, atraumatic. Extraocular movements are intact and symmetrical. Oral cavity: Mucous membranes moist and pink. Dentition is intact. NECK: Shows anterior throat supple without palpable lymphadenopathy noted. Swallow reflex symmetrical. CHEST: Shows normal on inspection. Breath sounds are clear bilaterally, distant but no rales rhonchi wheezes auscultated. HEART: Shows S1, S2 clear. No murmurs auscultated. ABDOMEN: Soft, nontender, nondistended, obese. No palpable organomegaly is noted. BACK: Shows spine grossly in the midline. Normal-appearing cervical lordotic curvature. There is slightly increased thoracic kyphosis, some flattening of the lumbar lordotic curvature. Well-healed surgical scar is noted in the midline. Lumbar paraspinous muscles show symmetrical on inspection, on palpation shows some moderate tenderness diffusely throughout the upper, middle and lower distribution of the paraspinous muscles, but without specific trigger points, without radiation of pain. The patient has good rotational motion of the lumbar spine, both laterally as well as extension and flexion without significant difficulty. Patient shows significant tenderness over the posterior superior iliac spine on the right in the superior aspect of the right sacroiliac joint but to only minimally tender on the left. EXTREMITIES: Lower extremities show deep tendon reflexes 1+ in the patellar and tendo calcaneus tendons. Motor exam is 5 on a scale of 5 with right dorsi flexion, extension, quadriceps and hamstring flexion and 5/5 on the left. Peripheral pulses are 1+ posterior tibial. No peripheral edema is noted bilaterally. Lower extremities are warm and dry. SKIN: Shows warm and dry, good turgor. No edema. No sores, rashes or bruising throughout. Procedure: Procedure: Options were discussed with the patient. Patient chart was reviewed his his current medication regimen updated current review of systems updated today as well. We will proceed with a right-sided sacroiliac joint injection today with fluoroscopic guidance. Risks were discussed including but not limited to bleeding infection possibility of intravascular injection sequelae spread local anesthetic numbness side effects steroid medications post fluoroscopy and portals regarding pain control. Patient understands wished to proceed. Patient will return to clinic in approximate 2 weeks for follow-up, was counseled as to return appointment, activity level, and side effects to be aware of. Medication Injected: Med Injected: Under sterile prep and drape using C-arm fluoroscopic guidance, right sacroiliac joint injected using 3 cc 0.25% bupivacaine +80 mg Depo-Medrol +2 cc contrast. Condition at discharge is stable, patient tolerated procedure well and had no complications. Condition at Discharge: Condition at Discharge: Condition at discharge is stable, patient tolerated the procedure well and had no complications. JEREL CHURCH MD January 13, 2021 10:54
--- NOTE | 2021-01-13 10:55 | PDOC4 ---
PROCEDURE Procedure Patient was consented for right sacroiliac joint injection with fluoroscopic guidance. Risks were discussed including but not limited to bleeding infection possibility of intravascular injection sequelae spread of local anesthetic and numbness side effects steroid medication exposure to fluoroscopy and portals regarding pain control. Under sterile prep and drape using C-arm fluoroscopic guidance, right sacroiliac joint injected using 3 cc 0.25% bupivacaine +80 mg Depo-Medrol +2 cc contrast. Condition at discharge is stable, patient tolerated procedure well and had no complications. JEREL CHURCH MD January 13, 2021 10:55
== END | disposition home or self-care (01) ==
LOC: PNCL 09:54
PROVIDERS: ATTEND Anesthesiology
DX: M46.1 Sacroiliitis, not elsewhere classified (principal); M50.10 Cervical disc disorder with radiculopathy, unspecified cervical region; M96.1 Postlaminectomy syndrome, not elsewhere classified; M48.061 Spinal stenosis, lumbar region without neurogenic claudication; I10 Essential (primary) hypertension; E78.00 Pure hypercholesterolemia, unspecified; M19.90 Unspecified osteoarthritis, unspecified site; E11.9 Type 2 diabetes mellitus without complications; E03.9 Hypothyroidism, unspecified; F41.9 Anxiety disorder, unspecified; F32.9 Major depressive disorder, single episode, unspecified; Z90.49 Acquired absence of other specified parts of digestive tract; Z98.890 Other specified postprocedural states; Z79.899 Other long term (current) drug therapy; Z79.84 Long term (current) use of oral hypoglycemic drugs; Z87.891 Personal history of nicotine dependence
CPT/HCPCS: 27096; J3490; Q9965; J1030; G0260

== ENCOUNTER → 2021-02-15 | Outpatient (CLI) | payer MEDICARE, OTHER ==
[2016-04-06 14:00] VITALS: BP 131/75
[~2021-02-15] MED LIST changes: -BUPIVACAINE MPF 0.25% 30 ML VIAL. ONE; +FURO-68 PO; +methylPREDNISolone ACETATE 80 MG/ML VIAL. ONE
--- NOTE | 2021-02-15 12:38 | PDOC4 ---
PROCEDURE Procedure Patient was consented for cervical epidural steroid injection. Risks were d iscussed including but not limited to: Bleeding, infection, possibility of epidural hematoma and subsequent neurological compromise, dural puncture, headaches, spinal cord and/or nerve damage, side effects of steroid medication, and poor results regarding pain control. Patient understands and wished to proceed. Procedure cervical epidural steroid injection at the C6-7 level, using local anesthetic under sterile prep and drape using C-arm fluoroscopic guidance under local anesthesia medications injected ;120 mg Depo-Medrol +5 mL normal saline and 2 mL contrast; condition at discharge is stable patient tolerated procedure well. and had no complications JEREL CHURCH MD Feb 15, 2021 12:38
--- NOTE | 2021-02-15 12:38 | PDOC ---
Progress Note - Pain Clinic Date of Service: DOS: DATE: 02/15/21 TIME: 12:34 Diagnosis: Dx: Cervical radiculopathy with cervical degenerative disc disease Lumbar radiculopathy with lumbar spinal stenosis and lumbar postlaminectomy syndrome Bilateral sacroiliitis History or Present Illness: HPI: 30-year-old male returns to follow-up status post cervical epidural steroid injection x1 and right sacroiliac joint injection x1. Patient reports he did very well after the cervical injection with 80% improvement but the back is st ill painful on the right side. Patient reports his chief complaint today is back and shoulder pain bilaterally worse on the left than the right. patient reports is a 10 on scale 10 is worse over the past week 7 on average 7 at its least and is a 7 today. Patient describes pain is radiating variable time tingling burning aching sharp bilateral shoulder some in the low back and the right side as well into the lower extremity posterior lateral thigh anterior thigh medial lower leg as well but again chief complaint is neck and shoulders pain with radiation more to the left arm than the right. Patient reports he has a appointment being scheduled for neurosurgical evaluation second opinion and MRI scan lumbar spine which is upcoming as well. Patient reports no new motor or sensory deficits no bowel or bladder incontinence or other complaints. Physical Exam: VS: Blood pressure is 143/78 pulse 84 respirations 18 temperature 97.8 F height is 6 foot weight is 285 pounds PE: PHYSICAL EXAMINATION: GENERAL: The patient is awake, alert, oriented, appropriate, very pleasant in demeanor HEENT: Shows normocephalic, atraumatic. Extraocular movements are intact and symmetrical. Oral cavity: Mucous membranes moist and pink. NECK: Shows anterior throat supple without palpable lymphadenopathy noted. Swallow reflex symmetrical. CHEST: Shows normal on inspection. Breath sounds are clear bilaterally. HEART: Shows S1, S2 clear. No murmurs auscultated. ABDOMEN: Soft, nontender, nondistended, obese. No palpable organomegaly is noted. BACK: Shows spine grossly in the midline. Normal-appearing cervical lordotic curvature. There is increased thoracic kyphosis, some flattening of the lumbar lordotic curvature. Lumbar paraspinous muscles show symmetrical on inspection, on palpation shows some moderate tenderness diffusely throughout the upper, midd le and lower distribution of the paraspinous muscles without specific trigger points, without radiation of pain. The patient has good rotational motion of the lumbar spine, both laterally as well as extension and flexion without significant difficulty. No tenderness over the spinous processes, sacrum or sacroiliac regions. EXTREMITIES: Lower extremities show deep tendon reflexes 1+ in the patellar and tendo calcaneus tendons. Motor exam is 5 on a scale of 5 with right dorsiflexion, extension, quadriceps and hamstring flexion and 5/5 on the left. Peripheral pulses are 1+ posterior tibial. No peripheral edema is noted bilaterally. Lower extremities are warm and dry to touch, equal in color and appearance. Upper extremity show deep tendon reflexes 2+ in the bicep and triceps tendons, motor exam strong with director design strength bicep tricep flexion rated 5 out of 5 equal and symmetrical. Shoulder shrug strong and intact without loss of strength on resistance bilaterally as well. SKIN: Shows warm and dry, good turgor. No edema. No sores, rashes or bruising throughout. Procedure: Procedure: Options were discussed with patient. Patient chart reviews his current medication regimen updated current review of systems updated today as well. We will proceed with a second cervical epidural to injection stable fluoroscopic guidance. Risks were discussed including but not limited to: Bleeding, infection, possibility of epidural hematoma and subsequent neurological compromise, dural puncture, headaches, spinal cord and/or nerve damage, side effects of steroid medication, and poor results regarding pain control. Patient understands and wished to proceed. Patient will return to clinic in approximate 2 weeks for follow-up, was counseled as return appointment activity level and side effects to be aware of. Medication Injected: Med Injected: Procedure cervical epidural steroid injection at the C6-7 level, using local anesthetic under sterile prep and drape using C-arm fluoroscopic guidance under local anesthesia medications injected ;120 mg Depo-Medrol +5 mL normal saline and 2 mL contrast; condition at discharge is stable patient tolerated procedure well. and had no complications Condition at Discharge: Condition at Discharge: Condition at discharge is stable, patient already the procedure well and had no complications. JEREL CHURCH MD Feb 15, 2021 12:38
== END | disposition home or self-care (01) ==
LOC: PNCL 11:02
PROVIDERS: ATTEND Anesthesiology
DX: M50.10 Cervical disc disorder with radiculopathy, unspecified cervical region (principal); M96.1 Postlaminectomy syndrome, not elsewhere classified; M48.061 Spinal stenosis, lumbar region without neurogenic claudication; M46.1 Sacroiliitis, not elsewhere classified; I10 Essential (primary) hypertension; E78.00 Pure hypercholesterolemia, unspecified; E11.9 Type 2 diabetes mellitus without complications; F41.9 Anxiety disorder, unspecified; F32.9 Major depressive disorder, single episode, unspecified; M19.90 Unspecified osteoarthritis, unspecified site; E03.9 Hypothyroidism, unspecified; Z90.49 Acquired absence of other specified parts of digestive tract; Z98.890 Other specified postprocedural states; Z79.899 Other long term (current) drug therapy; Z79.84 Long term (current) use of oral hypoglycemic drugs; Z87.891 Personal history of nicotine dependence
CPT/HCPCS: 62321; J1030; J1040; Q9965

== ENCOUNTER → 2021-03-28 | Outpatient (CLI) | payer MEDICARE, OTHER ==
[2016-04-06 14:00] VITALS: BP 131/75
--- NOTE | 2021-03-28 09:35 | PDOC ---
Progress Note - Pain Clinic Date of Service: DOS: DATE: 03/28/21 TIME: 09:31 Diagnosis: Dx: Cervical radiculopathy with cervical degenerative disc disease Lumbar radiculopathy with lumbar spinal stenosis and lumbar postlaminectomy syndrome Bilateral sacroiliitis History or Present Illness: HPI: 70-year-old male returns for follow-up status post cervical epidural steroid injection x2. Patient last seen 02/15/2021 patient did very well 100% improvement for the first 3 weeks and the pain began to return the base the neck and s houlders also some in the low back on the right side patient reports for the 3 weeks he had no pain he was increase activities greater ease and comfort moving some furniture around his house with greater ease and ability patient reports the pain began to return over the past week or so rates it now is an 8 on scale 10 is worst 6 on average to its least is a 6 today patient was aching dull tight shooting burning stabbing cramping on and off in intensity into the bilateral upper extremities and shoulders without any motor loss but significant fatigability of the upper extremities which she had not had previously. Patient reports no bowel or bladder incontinence or other complaints. Physical Exam: VS: Blood pressure is 144/69 pulse 91 respirations 18 temperature 98.2 F height is 6 foot weight is 287 pounds PE: PHYSICAL EXAMINATION: GENERAL: The patient is awake, alert, oriented, appropriate, very pleasant in demeanor. HEENT: Shows normocephalic, atraumatic. Extraocular movements are intact and symmetrical. Oral cavity: Mucous membranes moist and pink. NECK: Shows anterior throat supple without palpable lymphadenopathy noted. Swallow reflex symmetrical. CHEST: Shows normal on inspection. Breath sounds are clear bilaterally, distant but no rales or rhonchi. HEART: Shows S1, S2 clear. No murmurs auscultated. ABDOMEN: Soft, nontender, nondistended, obese. No palpable organomegaly is noted. BACK: Shows spine grossly in the midline. Normal-appearing cervical lordotic curvature. Cervical paraspinous muscles show symmetrical inspection, on palpation some moderate tenderness diffusely bilaterally diffusely without significant radiation. Patient has good rotation motion cervical spine both laterally as well as extension flexion without significant limitation. There is slightly increased thoracic kyphosis, some minor flattening of the lumbar lordotic curvature. Lumbar paraspinous muscles show symmetrical on inspection, on palpation shows some moderate tenderness diffusely throughout the upper, middle and lower distribution of the paraspinous muscles without specific trigger points, without radiation of pain. The patient has good rotational motion of the lumbar spine, both laterally as well as extension and flexion without significant difficulty. No tenderness over the spinous processes, sacrum or sacroiliac regions. EXTREMITIES: Lower extremities show deep tendon reflexes 1+ in the patellar and tendo calcaneus tendons. Motor exam is 4 on a scale of 5 with right dorsiflexion, extension, quadriceps and hamstring flexion and 4/5 on the left. Peripheral pulses are 1 posterior tibial. No peripheral edema is noted bilaterally. Lower extremities are warm and dry. Upper extremity show deep tendon reflexes 2+ in the bicep tricep tendons, motor exam is strong with 4-5 left anesthesiologist and critical care strength and 5 out of 5 right bicep and tricep flexion 5 out of 5 and equal. Shoulder shrug strong and intact without loss of strength on resistance. SKIN: Shows warm and dry, good turgor. No edema. No sores, rashes or bruising throughout. Procedure: Procedure: Options were discussed with patient. Patient's old chart was reviewed his current medication regimen updated current review of systems updated today as well. We will proceed with a third in the series cervical epidural steroid injection today with fluoroscopic guidance. Risks were discussed including but not limited to: Bleeding, infection, possibility of epidural hematoma and subsequent neurological compromise, dural puncture, headaches, spinal cord and/or nerve damage, side effects of steroid medication, and poor results regarding pain control. Patient understands and wished to proceed. Patient will return to clinic in approximate 2 weeks for follow-up, was counseled as return appointment activity level and side effects to be aware of. Medication Injected: Med Injected: Procedure cervical epidural steroid injection at the C6-7 level, using local anesthetic under sterile prep and drape using C-arm fluoroscopic guidance under local anesthesia medications injected ;120 mg Depo-Medrol +5 mL normal saline and 2 mL contrast; condition at discharge is stable patient tolerated procedure well. and had no complications Condition at Discharge: Condition at Discharge: Condition at discharge is stable, patient already procedure well and had no complications. JEREL CHURCH MD Mar 28, 2021 09:35
--- NOTE | 2021-03-28 09:35 | PDOC4 ---
Procedure Note: ICD 10 Code: ICD 10 Code: M 54.12 M50.30 Procedure Note: Patient was consented for cervical epidural steroid injection. Risks were discussed including but not limited to: Bleeding, infection, possibility of epidural hematoma and subsequent neurological compromise, dural puncture, headaches, spinal cord and/or nerve damage, side effects of steroid medication, and poor results regarding pain control. Patient understands and wished to proceed. Procedure cervical epidural steroid injection at the C6-7 level, using local anesthetic under sterile prep and drape using C-arm fluoroscopic guidance under local anesthesia medications injected ;120 mg Depo-Medrol +5 mL normal saline and 2 mL contrast; condition at discharge is stable patient tolerated procedure well. and had no complications JEREL CHURCH MD Mar 28, 2021 09:35
== END | disposition home or self-care (01) ==
LOC: PNCL 08:32
PROVIDERS: ATTEND Anesthesiology
DX: M54.12 Radiculopathy, cervical region (principal); M50.323 Other cervical disc degeneration at C6-C7 level; M48.061 Spinal stenosis, lumbar region without neurogenic claudication; M54.16 Radiculopathy, lumbar region; M96.1 Postlaminectomy syndrome, not elsewhere classified; I10 Essential (primary) hypertension; E78.00 Pure hypercholesterolemia, unspecified; E03.9 Hypothyroidism, unspecified; M19.90 Unspecified osteoarthritis, unspecified site; E11.9 Type 2 diabetes mellitus without complications; F41.9 Anxiety disorder, unspecified; F32.9 Major depressive disorder, single episode, unspecified; Z90.49 Acquired absence of other specified parts of digestive tract; Z98.890 Other specified postprocedural states; Z79.899 Other long term (current) drug therapy; Z87.891 Personal history of nicotine dependence
CPT/HCPCS: 62321; J1030; J1040; Q9965; 62323

== ENCOUNTER 2021-04-05 10:56 | Day surgery (SDC) | payer MEDICARE, OTHER ==
[~2021-04-05 10:56] MED LIST changes: +HYDROmorphone 2 MG/ML VIAL IVP PRN; -IOHEXOL 180 MG/ML 10 ML VIAL. ONE; +IV RINGERS,LACTATED 1000ML 1,000 ML IV SCH; +LIDOCAINE 2% PF 5 ML VIAL. ONE; +MORPHINE SULFATE 2 MG/ML INJ. IVP PRN; +PROCHLORPERAZINE 10 MG/2 ML VIAL. IVP PRN; +PROPOFOL 10 MG/ML (20ML) VIAL. IV ONE; +fentaNYL PF VIAL 100 MCG/2 ML VIAL IVP PRN; -methylPREDNISolone ACETATE 40 MG/ML VIAL. ONE; -methylPREDNISolone ACETATE 80 MG/ML VIAL. ONE
[2021-04-05] MEDS ORDERED: MIDAZOLAM HCL/PF 2 MG/2 ML VIAL. ONE (11:14)
[2021-04-05] MEDS ORDERED: PROPOFOL 10 MG/ML (20ML) VIAL. IV ONE (11:14)
[2021-04-05] MEDS ORDERED: KETAMINE HCL IN NACL, ISO-OSM 50 MG/5 ML SYRINGE ONE (11:14)
[2021-04-05] MEDS ORDERED: LIDOCAINE 2% PF 5 ML VIAL. ONE (11:14)
[2021-04-05 13:10] VITALS: BP 172/77
--- NOTE | 2021-04-05 15:42 | RAD ---
EXAM: Cervical spine MRI without contrast. HISTORY: Cervical radiculopathy. TECHNIQUE: Multiplanar, multisequence magnetic resonance imaging of the cervical spine was performed without contrast. COMPARISON: CT dated 11/07/2020. FINDINGS: There is minimal anterolisthesis of C7 on T1 and T1 on T2. There is multilevel endplate rem odeling and spurring. There is no fracture or suspicious osseous lesion. The skull base and posterior fossa are unremarkable. No spinal cord lesion is seen. At C2-C3, there is no stenosis. At C3-C4, there is a disc bulge and endplate remodeling. There is mild right greater than left facet arthropathy. There is no stenosis. At C4-C5, there is a disc bulge and endplate remodeling. There is moderate bilateral facet arthropath y. There is uncovertebral arthropathy. There is moderate bilateral foraminal stenosis. There is defor mation of the ventral aspect of the spinal cord without central canal stenosis. At C5-C6, there is a disc bulge and endplate remodeling. There is moderate bilateral facet arthropath y. There is uncovertebral arthropathy. There is moderate right and [id number] left foraminal st enosis. At C6-C7, there is a disc bulge and endplate osteophytosis. There is mild facet arthropathy. There is no stenosis. IMPRESSION: Multilevel degenerative change involving the cervical spine, described in detail above. T his results in foraminal stenosis at the aforementioned levels. No spinal cord signal abnormality is seen. Electronically signed by: Desirae Franklin MD (04/05/2021 3:39 PM) [id number]
== END 2021-04-05 13:33 | disposition home or self-care (01) ==
LOC: SURG 10:56
PROVIDERS: ATTEND Neurological Surgery
DX: M54.12 Radiculopathy, cervical region (principal); M50.221 Other cervical disc displacement at C4-C5 level; M50.222 Other cervical disc displacement at C5-C6 level; M50.223 Other cervical disc displacement at C6-C7 level; M48.02 Spinal stenosis, cervical region; M47.812 Spondylosis without myelopathy or radiculopathy, cervical region; I10 Essential (primary) hypertension; E78.00 Pure hypercholesterolemia, unspecified; F41.9 Anxiety disorder, unspecified; F32.9 Major depressive disorder, single episode, unspecified; M19.90 Unspecified osteoarthritis, unspecified site; E11.9 Type 2 diabetes mellitus without complications; E03.9 Hypothyroidism, unspecified; F17.210 Nicotine dependence, cigarettes, uncomplicated; Z79.899 Other long term (current) drug therapy; Z90.49 Acquired absence of other specified parts of digestive tract; Z96.652 Presence of left artificial knee joint; Z98.890 Other specified postprocedural states
CPT/HCPCS: 72141; 82962; J2250; J2704

== ENCOUNTER → 2021-05-18 | Outpatient (CLI) | payer MEDICARE, OTHER ==
[~2021-05-18] MED LIST changes: +BUPIVACAINE MPF 0.25% 10 ML VIAL. ONE; -HYDROmorphone 2 MG/ML VIAL IVP PRN; +IOHEXOL 180 MG/ML 10 ML VIAL. ONE; -IV RINGERS,LACTATED 1000ML 1,000 ML IV SCH; -LIDOCAINE 2% PF 5 ML VIAL. ONE; -MORPHINE SULFATE 2 MG/ML INJ. IVP PRN; -PROCHLORPERAZINE 10 MG/2 ML VIAL. IVP PRN; -PROPOFOL 10 MG/ML (20ML) VIAL. IV ONE; -fentaNYL PF VIAL 100 MCG/2 ML VIAL IVP PRN; +methylPREDNISolone ACETATE 80 MG/ML VIAL. ONE
--- NOTE | 2021-05-18 15:18 | PDOC ---
Progress Note - Pain Clinic Date of Service: DOS: DATE: 05/18/21 TIME: 15:13 Diagnosis: Dx: Lumbar spinal stenosis with lumbar postlaminectomy syndrome lumbar and lumbosacral spondylosis Bilateral sacroiliitis Cervical radiculopathy with cervical degenerative disc disease History or Present Illness: HPI: 70-year-old male returns for follow-up status post cervical epidural steroid injections with good results near 100% improvement still doing some rehab with his left shoulder and neck as well as the upper arm chief complaint today is right-sided low back pain. Patient reports this is different than the pain he had before is not in the sacroiliac region or his hip nor is it been in the radiating to the lower extremity patient reports is worse with walking and standing changing position specially getting up from a seated position or sitting for too long patient reports awakening from sleep about once every 6 hours as well. Patient reports pain is located in the right side of the low back sometimes radiating to the left side when it is severe but mostly on the right side patient notices again when getting up from a seated position also from sitting from standing and when he first gets up in the morning. Patient Is aching sharp dull stabbing and unbearable on the right side. Patient reports no other sensory deficits no bowel or bladder incontinence. Physical Exam: VS: Blood pressure 132/60 pulse 85 respirations 18 temperature 97.8 F weight is 286 pounds. PE: PHYSICAL EXAMINATION: GENERAL: The patient is awake, alert, oriented, appropriate, very pleasant in demeanor, patient accompanied by his HEENT: Shows normocephalic, atraumatic. Extraocular movements are intact and symmetrical. Oral cavity: Mucous membranes moist and pink. NECK: Shows anterior throat supple without palpable lymphadenopathy noted. Swallow reflex symmetrical. CHEST: Shows normal on inspection. Breath sounds are clear bilaterally, distant but no rales rhonchi or wheezes auscultated. HEART: Shows S1, S2 clear. No murmurs auscultated. ABDOMEN: Soft, nontender, nondistended, obese. No palpable organomegaly is noted. BACK: Shows spine grossly in the midline. Normal-appearing cervical lordotic curvature. There is increased thoracic kyphosis, some flattening of the lumbar lordotic curvature. Lumbar paraspinous muscles show symmetrical on inspection, on palpation shows some moderate tenderness diffusely throughout the upper, middle and lower distribution of the paraspinous muscles, but without specific trigger points, without radiation of pain. The patient has good rotational motion of the lumbar spine, both laterally as well as extension and flexion with significant tenderness with extension and axial loading lumbar spine as well as right lateral rotation greater than 10 degrees not to the left and not with forward flexion. No tenderness over the spinous processes, sacrum or sacroiliac regions. EXTREMITIES: Lower extremities show deep tendon reflexes 1+ in the patellar and tendo calcaneus tendons. Motor exam is 4 on a scale of 5 with right dorsiflexion, extension, quadriceps and hamstring flexion and 4/5 on the left. Peripheral pulses are 1 posterior tibial. No peripheral edema is noted bilaterally. Lower extremities are warm and dry to touch, equal in color and appearance. SKIN: Shows warm and dry, good turgor. No edema. No sores, rashes or bruising throughout. Procedure: Procedure: Options were discussed with the patient. Patient chart reviewed his current m edication regimen updated current review of systems updated today as well. We will proceed with a right-sided L4-5 and L5-S1 facet medial branch blocks today with fluoroscopic guidance. Risks were discussed including but not limited to: Bleeding, infection, possibility of epidural hematoma and subsequent neurological compromise, dural puncture, headaches, spinal cord and/or nerve damage, side effects of steroid medication, and poor results regarding pain control. Patient understands and wished to proceed. Patient return to clinic in approximate 2 weeks for follow-up, was counseled as return appointment, activity level, and side effects beware of. Medication Injected: Med Injected: Under sterile prep and drape using C-arm fluoroscopic guidance AP and lateral and oblique views, right L4-5 and L5-S1 facet joint MB's injections were performed, using quinke needles with stylette's x2,, medications injected: 80 mg Depo-Medrol +2 cc 0.25% bupivacaine +1 cc contrast. Condition at discharge stable patient tolerated the procedure well and no complications. Condition at Discharge: Condition at Discharge: Condition at discharge is stable, pain tolerated the procedure well and had no complications. JEREL CHURCH MD May 18, 2021 15:18
--- NOTE | 2021-05-18 15:18 | PDOC4 ---
Procedure Note: ICD 10 Code: ICD 10 Code: M 47.816 M 47.817 M 48.07 Procedure Note: Patient was consented for right-sided L4-5 L5-S1 lumbar facet medial branch blocks with fluoroscopic guidance. Risks were discussed including but not limited to: Bleeding, infection, possibility of epidural hematoma and subsequent neurological compromise, dural puncture, headaches, spinal cord and/or nerve damage, side effects of steroid medication, and poor results regarding pain control. Patient understands and wished to proceed. Under sterile prep and drape using C-arm fluoroscopic guidance AP and lateral and oblique views, right L4-5 and L5-S1 facet joint MB's injections were performed, using quinke needles with stylette's x2,, medications injected: 80 mg Depo-Medrol +2 cc 0.25% bupivacaine +1 cc contrast. Condition at discharge stable patient tolerated the procedure well and no complications. JEREL CHURCH MD May 18, 2021 15:18
== END | disposition home or self-care (01) ==
LOC: PNCL 14:09
PROVIDERS: ATTEND Anesthesiology
DX: M47.817 Spondylosis without myelopathy or radiculopathy, lumbosacral region (principal); M48.061 Spinal stenosis, lumbar region without neurogenic claudication; M96.1 Postlaminectomy syndrome, not elsewhere classified; M50.10 Cervical disc disorder with radiculopathy, unspecified cervical region; M46.1 Sacroiliitis, not elsewhere classified; I10 Essential (primary) hypertension; E78.00 Pure hypercholesterolemia, unspecified; E11.9 Type 2 diabetes mellitus without complications; M19.90 Unspecified osteoarthritis, unspecified site; E03.9 Hypothyroidism, unspecified; F41.9 Anxiety disorder, unspecified; F32.9 Major depressive disorder, single episode, unspecified; Z79.84 Long term (current) use of oral hypoglycemic drugs; Z79.899 Other long term (current) drug therapy; Z98.890 Other specified postprocedural states; Z87.891 Personal history of nicotine dependence
CPT/HCPCS: 64493; 64494; J1040; J3490; Q9965

== ENCOUNTER → 2021-06-26 | Outpatient (CLI) | payer MEDICARE, OTHER ==
[~2021-06-26] MED LIST changes: -BUPIVACAINE MPF 0.25% 10 ML VIAL. ONE; +BUPIVACAINE MPF 0.25% 30 ML VIAL. ONE; +methylPREDNISolone ACETATE 40 MG/ML VIAL. ONE
--- NOTE | 2021-06-26 10:49 | PDOC ---
Progress Note - Pain Clinic Date of Service: DOS: DATE: 06/26/21 TIME: 10:45 Diagnosis: Dx: Lumbar spondylosis with lumbosacral spondylosis and post lumbar laminectomy syndrome with spinal stenosis Sacroiliitis bilateral Cervical radiculopathy with cervical degenerative disc disease History or Present Illness: HPI: 70-year-old male returns for follow-up status post right-sided L4-5 and L5-S1 facet medial branch blocks with about 80% improvement for the first 3 to 4 weeks with increased activity greater ease with walking standing changing positions better traveling and sleeping better at night patient reports pain returning now in the low back on the right side only patient reports is an 8 on scale 10 is worse over the past week 6 on average 6 its least is a 6 today patient scribes as tingling and stabbing the back aching and sharp can be unbearable at times with walking standing changing position specially getting up from a seated position patient reports no radiation to the lower extremities no deficits no bowel or bladder incontinence. Physical Exam: VS: Blood pressure is 145/86 pulse 96 respirations 18 temperature 98.2 F height 6 foot weight 285 pounds. PE: PHYSICAL EXAMINATION: GENERAL: The patient is awake, alert, oriented, appropriate, very pleasant in demeanor HEENT: Shows normocephalic, atraumatic. Extraocular movements are intact and symmetrical. Oral cavity: Mucous membranes moist and pink. NECK: Shows anterior throat supple without palpable lymphadenopathy noted. Swallow reflex symmetrical. CHEST: Shows normal on inspection. Breath sounds are clear bilaterally, distant but no rales or rhonchi. HEART: Shows S1, S2 clear. No murmurs auscultated. ABDOMEN: Soft, nontender, nondistended, obese. No palpable organomegaly is noted. BACK: Shows spine grossly in the midline. Normal-appearing cervical lordotic curvature. There is slightly increased thoracic kyphosis, some minor flattening of the lumbar lordotic curvature. Lumbar paraspinous muscles show symmetrical on inspection, on palpation shows some moderate tenderness diffusely throughout the upper, middle and lower distribution of the paraspinous muscles, but without specific trigger points, without radiation of pain. The patient has good rotational motion of the lumbar spine, both laterally as well as extension and flexion with significant tenderness with extension and axial loading lumbar spine at 10 degrees forward flexion performed at 45 degrees without significant difficulty, right and left lateral rotation is moderately tender more to the right than the left. No tenderness over the spinous processes, sacrum or sacroiliac regions. EXTREMITIES: Lower extremities show deep tendon reflexes 1+ in the patellar and tendo calcaneus tendons. Motor exam is 4 on a scale of 5 with right dorsiflexion, extension, quadriceps and hamstring flexion and 4/5 on the left. Peripheral pulses are 1+ posterior tibial. No peripheral edema is noted bilaterally. Lower extremities are warm and dry to touch, equal in color and appearance. SKIN: Shows warm and dry, good turgor. No edema. No sores, rashes or bruising throughout. Procedure: Procedure: Options discussed with the patient. Patient chart reviewed his current medication regimen updated current review of systems updated today as well. We will proceed with right-sided L4-5 and L5-S1 medial branch facet blocks today with fluoroscopic guidance. Risks were discussed including but not limited to: Bleeding, infection, possibility of epidural hematoma and subsequent neurological compromise, dural puncture, headaches, spinal cord and/or nerve damage, side effects of steroid medication, and poor results regarding pain control. Patient understands and wished to proceed. Patient will return to clinic in approximately 2 weeks for follow-up, was counseled return appointment, activity level, and side effects be aware of. Medication Injected: Med Injected: Under sterile prep and drape using C-arm fluoroscopic guidance AP and lateral and oblique views, right L4-5 and L5-S1 facet joint MB's injections were performed, using quinke needles with stylette's x2, medications injected: 80 mg Depo-Medrol +2 cc 0.25% bupivacaine +1 cc contrast. Condition at discharge stable patient tolerated the procedure well and no complications. Condition at Discharge: Condition at Discharge: Condition at discharge stable, paced tolerated procedure well and had no complications. JEREL CHURCH MD Jun 26, 2021 10:49
--- NOTE | 2021-06-26 10:49 | PDOC4 ---
Procedure Note: ICD 10 Code: ICD 10 Code: M4 7.816 M4 7.817 Procedure Note: Patient was consented for right-sided L4-5 and L5-S1 facet medial branch blocks with fluoroscopic guidance. Risks were discussed including but not limited to: Bleeding, infection, possibility of epidural hematoma and subsequent neurological compromise, dural puncture, headaches, spinal cord and/or nerve damage, side effects of steroid medication, and poor results regarding pain control. Patient understands and wished to proceed. Under sterile prep and drape using C-arm fluoroscopic guidance AP and lateral and oblique views, right L4-5 and L5-S1 facet joint MB's injections were performed, using quinke needles with stylette's x2, medications injected: 80 mg Depo-Medrol +2 cc 0.25% bupivacaine +1 cc contrast. Condition at discharge stable patient tolerated the procedure well and no complications. JEREL CHURCH MD Jun 26, 2021 10:49
== END | disposition home or self-care (01) ==
LOC: PNCL 09:58
PROVIDERS: ATTEND Anesthesiology
DX: M47.817 Spondylosis without myelopathy or radiculopathy, lumbosacral region (principal); M48.061 Spinal stenosis, lumbar region without neurogenic claudication; M50.10 Cervical disc disorder with radiculopathy, unspecified cervical region; M46.1 Sacroiliitis, not elsewhere classified; M96.1 Postlaminectomy syndrome, not elsewhere classified; I10 Essential (primary) hypertension; E78.00 Pure hypercholesterolemia, unspecified; M19.90 Unspecified osteoarthritis, unspecified site; E11.9 Type 2 diabetes mellitus without complications; E03.9 Hypothyroidism, unspecified; F41.9 Anxiety disorder, unspecified; F32.9 Major depressive disorder, single episode, unspecified; Z90.49 Acquired absence of other specified parts of digestive tract; Z98.890 Other specified postprocedural states; Z79.899 Other long term (current) drug therapy; Z79.84 Long term (current) use of oral hypoglycemic drugs; Z87.891 Personal history of nicotine dependence
CPT/HCPCS: 64493; 64494; J1040; J3490; Q9965; J1030

== ENCOUNTER → 2021-07-26 | Outpatient (CLI) | payer MEDICARE, OTHER ==
[~2021-07-26] MED LIST changes: +BUPIVACAINE MPF 0.25% 10 ML VIAL. ONE; -BUPIVACAINE MPF 0.25% 30 ML VIAL. ONE; +HYDR-2761 PO
--- NOTE | 2021-07-26 13:00 | PDOC ---
Progress Note - Pain Clinic Date of Service: DOS: DATE: 07/26/21 TIME: 12:57 Diagnosis: Dx: Lumbar radiculopathy with lumbar spinal stenosis and lumbar postlaminectomy syndrome with lumbar and lumbosacral spondylosis Cervical radiculopathy with cervical degenerative disease Bilateral sacroiliitis History or Present Illness: HPI: 70-year-old male returns for follow-up status post right-sided L4-5 and L5-S1 facet medial branch blocks with good results about 80% improvement for about 3 to 4 weeks pain is returning now to about 50% level overall in the bilateral lower back patient reports the left side is now significantly painful similar to the right side where as it was not painful on his last visit patient reports a 10 on scale 10 is worse over the past week 8 on average 6 its least and is a 6 today patient was aching sharp dull shooting stabbing radiating can be unbearable radiating across the back but not into the lower extremity significantly. Patient reports worse with standing walking changing positions better getting up from a seated position and walking and standing with extension the lumbar spine. Patient reports is better with sitting or laying down does not generally awaken him from sleep reports no bowel or bladder incontinence. Physical Exam: VS: Blood pressure is 138/83 pulse 77 respirations 18 temperature is 95 F height 6 foot weight 285 pounds PE: PHYSICAL EXAMINATION: GENERAL: The patient is awake, alert, oriented, appropriate, very pleasant in [facility], patient [place] by his HEENT: Shows normocephalic, atraumatic. Extraocular movements are intact and symmetrical. Oral cavity: Mucous membranes moist and pink. NECK: Shows anterior throat supple without palpable lymphadenopathy noted. Swallow reflex symmetrical. CHEST: Shows normal on inspection. Breath sounds are clear bilaterally. HEART: Shows S1, S2 clear. No murmurs auscultated. ABDOMEN: Soft, nontender, nondistended, obese. No palpable organomegaly is noted. BACK: Shows spine grossly in the midline. Normal-appearing cervical lordotic curvature. There is increased thoracic kyphosis, some flattening of the lumbar lordotic curvature. Lumbar paraspinous muscles show symmetrical on inspection, on palpation shows some moderate tenderness diffusely throughout the upper, middle and lower distribution of the paraspinous muscles, but without specific trigger points, without radiation of pain. The patient has good rotational motion of the lumbar spine, both laterally as well as extension and flexion with significant tenderness with extension lumbar spine and axial loading of the low back all better with forward flexion 45 degrees, right and left lateral rotation at 10 degrees is performed with moderate tenderness bilaterally left greater than right. EXTREMITIES: Lower extremities show deep tendon reflexes 1+ in the patellar and tendo calcaneus tendons. Motor exam is 4 on a scale of 5 with right dorsiflexion, extension, quadriceps and hamstring flexion and 4/5 on the left. Peripheral pulses are 1 posterior tibial. No peripheral edema is noted bilaterally. Lower extremities are warm and dry to touch, equal in color and appearance. SKIN: Shows warm and dry, good turgor. No edema. No sores, rashes or bruising throughout. Procedure: Procedure: Options discussed with patient. Patient chart was reviewed his current medication regimen updated current review of systems updated today as well. We will proceed with bilateral L4-5 and L5-S1 medial branch facet blocks today with fluoroscopic guidance. Risks were discussed including but not limited to: Bleeding, infection, possibility of epidural hematoma and subsequent neurological compromise, dural puncture, headaches, spinal cord and/or nerve damage, side effects of steroid medication, and poor results regarding pain control. Patient understands and wished to proceed. Patient will return to clinic in approximate 4 weeks for follow-up, was counseled as return appointment, activity level, and side effect to be aware of. Medication Injected: Med Injected: Under sterile prep and drape using C-arm fluoroscopic guidance AP and lateral and oblique views, bilateral L4-5 and L5-S1 facet joint MB's injections were performed, using quinke needles with stylette's x4,, medications injected: 120 mg Depo-Medrol +4 cc 0.25% bupivacaine +2 cc contrast. Condition at discharge stable patient tolerated the procedure well and no complications. Condition at Discharge: Condition at Discharge: Condition at discharge stable, patient tolerated the procedure well and had no complications. JEREL CHURCH MD Jul 26, 2021 13:00
--- NOTE | 2021-07-26 13:02 | PDOC4 ---
Procedure Note: ICD 10 Code: ICD 10 Code: M4 7.816 M4 7.817 96.1 M4 8.07 Procedure Note: Patient was consented for bilateral L4-5 and L5-S1 facet medial branch blocks with fluoroscopic guidance. Risks were discussed including but not limited to: Bleeding, infection, possibility of epidural hematoma and subsequent neurological compromise, dural puncture, headaches, spinal cord and/or nerve damage, side effects of steroid medication, and poor results regarding pain control. Patient understands and wished to proceed. Under sterile prep and drape using C-arm fluoroscopic guidance AP and lateral and oblique views, bilateral L4-5 and L5-S1 facet joint MB's injections were performed, using quinke needles with stylette's x4,, medications injected: 120 mg Depo-Medrol +4 cc 0.25% bupivacaine +2 cc contrast. Condition at discharge stable patient tolerated the procedure well and no complications. JEREL CHURCH MD Jul 26, 2021 13:02
== END | disposition home or self-care (01) ==
LOC: PNCL 11:06
PROVIDERS: ATTEND Anesthesiology
DX: M47.27 Other spondylosis with radiculopathy, lumbosacral region (principal); M48.061 Spinal stenosis, lumbar region without neurogenic claudication; M47.816 Spondylosis without myelopathy or radiculopathy, lumbar region; M96.1 Postlaminectomy syndrome, not elsewhere classified; M50.10 Cervical disc disorder with radiculopathy, unspecified cervical region; M46.1 Sacroiliitis, not elsewhere classified; M47.26 Other spondylosis with radiculopathy, lumbar region; I10 Essential (primary) hypertension; M19.90 Unspecified osteoarthritis, unspecified site; E03.9 Hypothyroidism, unspecified; E11.9 Type 2 diabetes mellitus without complications; F41.9 Anxiety disorder, unspecified; F32.9 Major depressive disorder, single episode, unspecified; Z87.891 Personal history of nicotine dependence; Z79.84 Long term (current) use of oral hypoglycemic drugs; Z79.899 Other long term (current) drug therapy; Z98.890 Other specified postprocedural states; Z90.49 Acquired absence of other specified parts of digestive tract
CPT/HCPCS: 64493; 64494; J1030; J1040; J3490; Q9965

== ENCOUNTER → 2021-08-31 | Outpatient (CLI) | payer MEDICARE, OTHER ==
[~2021-08-31] MED LIST changes: -methylPREDNISolone ACETATE 40 MG/ML VIAL. ONE
--- NOTE | 2021-08-31 09:29 | PDOC4 ---
Procedure Note: ICD 10 Code: ICD 10 Code: M4 7.816 M4 7.817 Procedure Note: Patient was consented for right side medial branch facet blocks with fluoroscopic guidance. Risks were discussed including but not limited to: Bleeding, infection, possibility of epidural hematoma and subsequent neurological compromise, dural puncture, headaches, spinal cord and/or nerve damage, side effects of steroid medication, and poor results regarding pain cont rol. Patient understands and wished to proceed. Under sterile prep and drape using C-arm fluoroscopic guidance AP and lateral a nd oblique views, right L4-5 and L5-S1 facet joint MB's injections were performed, using quinke needles with stylette's x2,, medications injected: 80 mg Depo-Medrol +2 cc 0.25% bupivacaine +1 cc contrast. Condition at discharge stable patient tolerated the procedure well and no complications. JEREL CHURCH MD Aug 31, 2021 09:29
--- NOTE | 2021-08-31 09:29 | PDOC ---
Progress Note - Pain Clinic Date of Service: DOS: DATE: 08/31/21 TIME: 09:24 Diagnosis: Dx: Lumbar and lumbosacral spondylosis Lumbar radiculopathy with lumbar spinal stenosis and lumbar postlaminectomy syndrome Cervical radiculopathy with cervical degenerative disc disease Bilateral sacroiliitis Diabetes type 2 Hypertension History or Present Illness: HPI: 70-year-old male returns for follow-up status post cervical epidural steroid injection as well as bilateral lumbar facet joint injections with good results patient reports about 80% improvement for several weeks after his last injection his left side is now doing much better his right side is still painful patient reports worse with sitting for prolonged periods walking standing changing positions getting up from a seated position especially patient reports he does not radiate to his lower extremity at this time and is in the right side but occasionally radiates to the left side mostly the right side is his chief complaint patient reports is a 10 on scale 10 is worst over the past week 7 on average 6 its least is a 6 today patient works aching sharp shooting stabbing radiating across to the left side and unbearable at times with walking and standing patient reports it generally does not awaken her from sleep at night he sleeps about 6 to 7 hours at a time without disturbance from the pain. Patient reports no bowel or bladder incontinence. Patient reports no significant increase in blood sugar after his injections he is taking Metformin and Actos for his type 2 diabetes. We encourage patient to continue monitoring this after his steroid injections to ensure that he does not have elevations in blood glucose, patient understands. Physical Exam: VS: Blood pressure is 1 4481 pulse 83 respirations 18 temperature 98.0 F weight is 286 pounds PE: PHYSICAL EXAMINATION: GENERAL: The patient is awake, alert, oriented, appropriate, very pleasant in demeanor HEENT: Shows normocephalic, atraumatic. Extraocular movements are intact and symmetrical. Patient wearing eyeglasses. Oral cavity: Mucous membranes moist and pink. Dentition is intact. NECK: Shows anterior throat supple without palpable lymphadenopathy noted. Swallow reflex symmetrical. CHEST: Shows normal on inspection. Breath sounds are clear bilaterally, distant no rales or rhonchi. HEART: Shows S1, S2 clear. No murmurs auscultated. ABDOMEN: Soft, nontender, nondistended, obese. No palpable organomegaly is noted. BACK: Shows spine grossly in the midline. Normal-appearing cervical lordotic curvature. There is slightly increased thoracic kyphosis, some minor flattening of the lumbar lordotic curvature. Lumbar paraspinous muscles show symmetrical on inspection, on palpation shows some moderate tenderness diffusely throughout the upper, middle and lower distribution of the paraspinous muscles without specific trigger points, without radiation of pain. The patient has good rotational motion of the lumbar spine, both laterally as well as extension and flexion with moderate tenderness with right lateral rotation but not left also with extension and axial loading lumbar spine significant tenderness on the right side only but without radiation into the lower extremity or to the left side. Forward flexion is performed without significant difficulty. EXTREMITIES: Lower extremities show deep tendon reflexes 1+ in the patellar and tendo calcaneus tendons. Motor exam is 4 on a scale of 5 with right dorsiflexion, extension, quadriceps and hamstring flexion and 4/5 on the left. Peripheral pulses are 1+ posterior tibial. No peripheral edema is noted bilaterally. Lower extremities are warm and dry to touch, equal in color and appearance. SKIN: Shows warm and dry, good turgor. No edema. No sores, rashes or bruising throughout. Procedure: Procedure: Options were discussed with patient. Patient chart was reviewed his current medication regimen updated current review of systems updated today as well. We will proceed with right-sided L4-5 and L5-S1 facet needle branch blocks with fluoroscopic guidance. Risks were discussed including but not limited to: Bleeding, infection, possibility of epidural hematoma and subsequent neurological compromise, dural puncture, headaches, spinal cord and/or nerve d amage, side effects of steroid medication, and poor results regarding pain control. Patient understands and wished to proceed. Patient will return to clinic in approximately 2 weeks for follow-up, was counseled as to return appointment, activity level, and side effect to be aware of. Also will order physical therapy for cervical traction stretching strength exercises as well as mobility exercises and postural retraining. Medication Injected: Med Injected: Under sterile prep and drape using C-arm fluoroscopic guidance AP and lateral and oblique views, right L4-5 and L5-S1 facet joint MB's injections were performed, using quinke needles with stylette's x2,, medications injected: 80 mg Depo-Medrol +2 cc 0.25% bupivacaine +1 cc contrast. Condition at discharge stable patient tolerated the procedure well and no complications. Condition at Discharge: Condition at Discharge: Condition at discharge stable, patient tolerated the procedure well and had no complications. JEREL CHURCH MD Aug 31, 2021 09:29
== END | disposition home or self-care (01) ==
LOC: PNCL 08:48
PROVIDERS: ATTEND Anesthesiology
DX: M47.27 Other spondylosis with radiculopathy, lumbosacral region (principal); M47.816 Spondylosis without myelopathy or radiculopathy, lumbar region; M48.061 Spinal stenosis, lumbar region without neurogenic claudication; M96.1 Postlaminectomy syndrome, not elsewhere classified; M50.10 Cervical disc disorder with radiculopathy, unspecified cervical region; M46.1 Sacroiliitis, not elsewhere classified; I10 Essential (primary) hypertension; E11.9 Type 2 diabetes mellitus without complications; E03.9 Hypothyroidism, unspecified; E78.00 Pure hypercholesterolemia, unspecified; M19.90 Unspecified osteoarthritis, unspecified site; F41.9 Anxiety disorder, unspecified; F32.9 Major depressive disorder, single episode, unspecified; Z90.49 Acquired absence of other specified parts of digestive tract; Z98.890 Other specified postprocedural states; Z79.899 Other long term (current) drug therapy; Z79.84 Long term (current) use of oral hypoglycemic drugs; Z87.891 Personal history of nicotine dependence
CPT/HCPCS: 64493; 64494; J1040; J3490; Q9965

== ENCOUNTER → 2021-11-14 | Outpatient (CLI) | payer MEDICARE, OTHER ==
[~2021-11-14] MED LIST changes: -BUPIVACAINE MPF 0.25% 10 ML VIAL. ONE; +DEXAMETHASONE PRES.FREE 10 MG/ML VIAL. ONE; -methylPREDNISolone ACETATE 80 MG/ML VIAL. ONE
--- NOTE | 2021-11-14 10:15 | PDOC4 ---
Procedure Note: ICD 10 Code: ICD 10 Code: M54.12 M50.30 Procedure Note: Patient was consented for cervical epidural steroid injection fluoroscopic guidance. Risks were discussed including but not limited to: Bleeding, infection, possibility of epidural hematoma and subsequent neurological compromise, dural puncture, headaches, spinal cord and/or nerve damage, side effects of steroid medication, and poor results regarding pain control. Patient understands and wished to proceed. Procedure cervical epidural steroid injection at the C6-7 level, using local anesthetic under sterile prep and drape using C-arm fluoroscopic guidance under local anesthesia medications injected ; 20 mg dexamethasone +5 mL normal saline and 2 mL contrast; condition at discharge is stable patient tolerated procedure well. and had no complications JEREL CHURCH MD Nov 14, 2021 10:15
--- NOTE | 2021-11-14 10:15 | PDOC ---
Progress Note - Pain Clinic Date of Service: DOS: DATE: 11/14/21 TIME: 10:11 Diagnosis: Dx: Lumbar radiculopathy with lumbar spinal stenosis with post lumbar laminectomy syndrome Cervical radiculopathy with cervical degenerative disease Bilateral sacroiliitis History or Present Illness: HPI: 71-year-old male returns for follow-up status post bilateral facet medial branch blocks lumbar L4-5 and L5-S1 with very good results patient reports about 80% improvement this was in August patient reports chief complaint today however his neck and bilateral upper extremity and shoulder pain left greater than right with pain radiating the upper extremities into the posterior deltoid into the forearms and the hand getting much worse over the past 2 weeks or so patient reports no specific injury or accident that he is aware of them getting worse at night awakening from sleep occasionally but not most nights patient reports he has seen his neurosurgeon who is recommending eventual surgical fusion of the anterior spine but has many obligations coming up he needs to take care of before the surgery can be scheduled patient reports significant pain with repetitive motions reaching overhead with his arm specially on the left side reaching forward with weightbearing repetitive weightbearing lifting 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 Patient reports no loss of motor function but significant fatigability proceed with left upper extremity with repetitive activity. Physical Exam: VS: Blood pressure is 143/69 pulse 84 respirations 18 temperature 98.6 F height is 6 foot weight is 289 pounds. PE: PHYSICAL EXAMINATION: GENERAL: The patient is awake, alert, oriented, appropriate, very pleasant in demeanor HEENT: Shows normocephalic, atraumatic. Extraocular movements are intact and symmetrical. Oral cavity: Mucous membranes moist and pink. NECK: Shows anterior throat supple without palpable lymphadenopathy noted. Swallow reflex symmetrical. CHEST: Shows normal on inspection. Breath sounds are clear bilaterally, no rales or rhonchi. HEART: Shows S1, S2 clear. No murmurs auscultated. ABDOMEN: Soft, nontender, nondistended, obese. No palpable organomegaly is noted. BACK: Shows spine grossly in the midline. Normal-appearing cervical lordotic curvature. Cervical paraspinous muscles show symmetrical inspection, on palpation some moderate tenderness diffusely bilaterally diffusely without significant radiation. Patient does show good rotation motion cervical spine both laterally as well as extension flexion without significant difficulty. There is moderately increased thoracic kyphosis, some moderate flattening of the lumbar lordotic curvature, with well-healed surgical scar noted. Lumbar paraspinous muscles show symmetrical on inspection, on palpation shows some moderate tenderness diffusely throughout the upper, middle and lower distribution of the paraspinous muscles, but without specific trigger points, without radiation of pain. The patient has good rotational motion of the lumbar spine, both laterally as well as extension and flexion without significant difficulty. EXTREMITIES: Lower extremities show deep tendon reflexes 1+ in the patellar and tendo calcaneus tendons. Motor exam is 4 on a scale of 5 with right dorsiflexion, extension, quadriceps and hamstring flexion and 4/5 on the left. Peripheral pulses are 1+ posterior tibial. No peripheral edema is noted bilaterally. Lower extremities are warm and dry to touch, equal in color and appearance. Upper extremity show deep tendon reflexes 2+ in the bicep tricep tendons motor exam is 4 to scale 5 with left heat treat operator strength bicep tricep flexion 5 out of 5 on the right. Shoulder shrug is strong and intact without loss of strength on resistance bilaterally as is abduction at 90 degrees bilaterally. SKIN: Shows warm and dry, good turgor. No edema. No sores, rashes or bruising throughout. Procedure: Procedure: Options discussed with the patient. Patient's chart was viewed as his current medication regimen updated current review of systems updated today as well. We will proceed with a cervical epidural steroid injection today with fluoroscopic guidance. Risks were discussed including but not limited to: Bleeding, infectio n, possibility of epidural hematoma and subsequent neurological compromise, dural puncture, headaches, spinal cord and/or nerve damage, side effects of steroid medication, and poor results regarding pain control. Patient understands and wished to proceed. Patient will return to the clinic in approximately 2 weeks for follow-up, was counseled as to return appointment, activity level, and side effect to be aware of. Medication Injected: Med Injected: Procedure cervical epidural steroid injection at the C6-7 level, using local anesthetic under sterile prep and drape using C-arm fluoroscopic guidance under local anesthesia medications injected ; 20 mg dexamethasone +5 mL normal saline and 2 mL contrast; condition at discharge is stable patient tolerated procedure well. and had no complications Condition at Discharge: Condition at Discharge: Condition at discharge stable, patient tolerated procedure well and had no complications. JEREL CHURCH MD Nov 14, 2021 10:15
== END | disposition home or self-care (01) ==
LOC: PNCL 09:00
PROVIDERS: ATTEND Anesthesiology
DX: M50.10 Cervical disc disorder with radiculopathy, unspecified cervical region (principal); M54.12 Radiculopathy, cervical region; M48.061 Spinal stenosis, lumbar region without neurogenic claudication; M96.1 Postlaminectomy syndrome, not elsewhere classified; M46.1 Sacroiliitis, not elsewhere classified; I10 Essential (primary) hypertension; E78.00 Pure hypercholesterolemia, unspecified; E11.9 Type 2 diabetes mellitus without complications; E03.9 Hypothyroidism, unspecified; F41.9 Anxiety disorder, unspecified; F32.9 Major depressive disorder, single episode, unspecified; Z90.49 Acquired absence of other specified parts of digestive tract; Z98.890 Other specified postprocedural states; Z79.899 Other long term (current) drug therapy; Z87.891 Personal history of nicotine dependence
CPT/HCPCS: 62321; J1100; Q9965

== ENCOUNTER → 2021-11-29 | Outpatient (CLI) | payer MEDICARE, OTHER ==
--- NOTE | 2021-11-29 08:47 | PDOC4 ---
Procedure Note: ICD 10 Code: ICD 10 Code: M54.12 M50.30 Procedure Note: Patient was consented for cervical epidural steroid injection with fluoroscopic guidance. Risks were discussed including but not limited to: Bleeding, infection, possibility of epidural hematoma and subsequent neurological compromise, dural puncture, headaches, spinal cord and/or nerve damage, side effects of steroid medication, and poor results regarding pain control. Patient understands and wished to proceed. Procedure cervical epidural steroid injection at the C6-7 level, using local anesthetic under sterile prep and drape using C-arm fluoroscopic guidance under local anesthesia medications injected ; 20 mg dexamethasone +5 mL normal saline and 2 mL contrast; condition at discharge is stable patient tolerated procedure well. and had no complications JEREL CHURCH MD Nov 29, 2021 08:47
--- NOTE | 2021-11-29 08:47 | PDOC ---
Progress Note - Pain Clinic Date of Service: DOS: DATE: 11/29/21 TIME: 08:43 Diagnosis: Dx: Cervical radiculopathy with cervical degenerative disc disease Lumbar radiculopathy lumbar spinal stenosis lumbar postlaminectomy syndrome and lumbar spondylosis Sacroiliitis History or Present Illness: HPI: 71-year-old male returns for follow-up status post cervical epidural steroid traction x1. Patient reports 80% improvement for the first 2 weeks and the pain beginning to return and now has new pain in the right arm into the hand with the thumb and first and second fingers patient reports this is new has not been significantly noticeable previously had pain in the neck and shoulders bilaterally also some in the upper arms previously but now is in the forearm and into the right hand and as well thumb and first fingers patient reports no specific accident no recent activity that may have caused this that he is aware of. Patient reports initially is doing much better for the first week the pain returning now and again new in the right hand patient reports is a 10 on scale 10 is worse over the past week 7 on average 5 to [place] is a 5 today patient describes aching and dull shooting in the right arm some in the left upper arm mostly in the right side especially with the tingling numbness in the right hand patient reports some weakness in the hand and difficulty with doing fine motor movements but no overall strength loss patient reports its radiating can be unbearable at times better with resting supporting his head in upright position and generally does not awaken him from sleep at night as he sleeps fairly soundly. Patient reports no bowel or bladder incontinence. Physical Exam: VS: Blood pressure is 142/85 pulse 80 respirations 18 temperature 97.9 F height 6 foot weight is 291 pounds. PE: PHYSICAL EXAMINATION: GENERAL: The patient is awake, alert, oriented, appropriate, very pleasant in demeanor HEENT: Shows normocephalic, atraumatic. Extraocular movements are intact and sy mmetrical. Oral cavity: Mucous membranes moist and pink. Dentition is intact. NECK: Shows anterior throat supple without palpable lymphadenopathy noted. Swallow reflex symmetrical. CHEST: Shows normal on inspection. Breath sounds are clear bilaterally, distant but no rales or rhonchi. HEART: Shows S1, S2 clear. No murmurs auscultated. ABDOMEN: Soft, nontender, nondistended. No palpable organomegaly is noted. BACK: Shows spine grossly in the midline. Normal-appearing cervical lordotic curvature. Cervical paraspinous muscles show symmetrical with inspection, palpation some moderate tenderness diffusely in the inferior aspect the cervical paraspinous muscular bilaterally but without significant radiation or atrophy hypertrophy. Patient shows good rotation motion cervical spine with lateral as well as extension flexion without significant difficulty. There is slightly increased thoracic kyphosis, some minor flattening of the lumbar lordotic curvature. Lumbar paraspinous muscles show symmetrical on inspection, on palpation shows some moderate tenderness diffusely throughout the upper, middle and lower distribution of the paraspinous muscles, but without specific trigger points, without radiation of pain. The patient has good rotational motion of the lumbar spine, both laterally as well as extension and flexion without significant difficulty. No tenderness over the spinous processes, sacrum or sacroiliac regions. EXTREMITIES: Lower extremities show deep tendon reflexes 1+ in the patellar and tendo calcaneus tendons. Motor exam is 5 on a scale of 5 with right dorsiflexion, extension, quadriceps and hamstring flexion and 5/5 on the left. Peripheral pulses are 1+ posterior tibial. No peripheral edema is noted bilaterally. Lower extremities are warm and dry to touch, equal in color and appearance. Upper extremity show deep tendon reflexes 2+ in the bicep tricep tendons motor exam is positive for scale 5 with right bellows tester strength bicep tricep flexion and 5 out of 5 on the left. Shoulder shrug strong intact without loss of strength on resistance. Peripheral pulses are 2+ radial bilaterally. SKIN: Shows warm and dry, good turgor. No edema. No sores, rashes or bruising throughout. Procedure: Procedure: Options discussed with the patient. Patient's old chart was viewed as his current medication regimen updated current review of systems updated today as well. We will proceed with a cervical epidural steroid injection today with fluoroscopic guidance. Risks were discussed including but not limited to: Bleeding, infection, possibility of epidural hematoma and subsequent neurological compromise, dural puncture, headaches, spinal cord and/or nerve damage, side effects of steroid medication, and poor results regarding pain control. Patient understands and wished to proceed. Return to clinic in approximately 2 weeks for follow-up, was counseled as to return appointment, activity level, and side effect to be aware of. Medication Injected: Med Injected: Procedure cervical epidural steroid injection at the C6-7 level, using local anesthetic under sterile prep and drape using C-arm fluoroscopic guidance under local anesthesia medications injected ; 20 mg dexamethasone +5 mL normal saline and 2 mL contrast; condition at discharge is stable patient tolerated procedure well. and had no complications Condition at Discharge: Condition at Discharge: Condition at discharge stable, paced tolerated procedure well and had no co mplications. JEREL CHURCH MD Nov 29, 2021 08:47
== END | disposition home or self-care (01) ==
LOC: PNCL 07:53
PROVIDERS: ATTEND Anesthesiology
DX: M50.10 Cervical disc disorder with radiculopathy, unspecified cervical region (principal); M54.12 Radiculopathy, cervical region; M48.02 Spinal stenosis, cervical region; M48.061 Spinal stenosis, lumbar region without neurogenic claudication; M96.1 Postlaminectomy syndrome, not elsewhere classified; M46.1 Sacroiliitis, not elsewhere classified; M47.26 Other spondylosis with radiculopathy, lumbar region; I10 Essential (primary) hypertension; E78.00 Pure hypercholesterolemia, unspecified; M19.90 Unspecified osteoarthritis, unspecified site; E11.9 Type 2 diabetes mellitus without complications; E03.9 Hypothyroidism, unspecified; F41.9 Anxiety disorder, unspecified; F32.9 Major depressive disorder, single episode, unspecified; Z90.49 Acquired absence of other specified parts of digestive tract; Z98.890 Other specified postprocedural states; Z79.899 Other long term (current) drug therapy; Z87.891 Personal history of nicotine dependence; Z79.84 Long term (current) use of oral hypoglycemic drugs
CPT/HCPCS: 62321; J1100; Q9965; 62323

== ENCOUNTER 2021-12-18 09:11 | Outpatient (CLI) | payer MEDICARE, OTHER ==
[~2021-12-18 09:11] MED LIST changes: -DEXAMETHASONE PRES.FREE 10 MG/ML VIAL. ONE; +HYDROmorphone 2 MG/ML INJ. IVP PRN; -IOHEXOL 180 MG/ML 10 ML VIAL. ONE; +IV RINGERS,LACTATED 1000ML 1,000 ML IV SCH; +MORPHINE SULFATE 2 MG/ML INJ. IVP PRN; +PROCHLORPERAZINE 10 MG/2 ML VIAL. IVP PRN; +fentaNYL PF VIAL 100 MCG/2 ML VIAL IVP PRN
[2021-12-18 10:14] LABS: CREATININE 0.9 mg/dL (0.7-1.3); GFR 82.9
[2021-12-18] MEDS ORDERED: PROPOFOL 10 MG/ML (20ML) VIAL. IV ONE (10:22)
[2021-12-18] MEDS ORDERED: LIDOCAINE 2% 100 MG/5 ML SYRINGE. ONE (10:22)
[2021-12-18] MEDS ORDERED: MIDAZOLAM HCL/PF 2 MG/2 ML VIAL. ONE (10:23)
[2021-12-18] MEDS ORDERED: KETAMINE HCL IN NACL, ISO-OSM 50 MG/5 ML SYRINGE ONE (10:23)
[2021-12-18] MEDS: GADOTERATE 7.5 MMOL/15ML VIAL. IVP ONE (11:49)
[2021-12-18 12:11] VITALS: BP 164/54
--- NOTE | 2021-12-18 13:46 | RAD ---
MR CERVICAL SPINE WO History:Reason: cervical radiculopathy / Spl. Instructions: / History: Technique: Multiplanar, multi sequential noncontrast MR imaging was performed of the cervical spine. Comparison: April 05, 2021 Findings: Straightening of the cervical spine. Slight grade 1 anterolisthesis C5 on C6 and C7 on T1, unchanged. No acute fracture. No pathologic signal abnormality within the cervical spinal cord. C2-C3: No canal or neuroforaminal narrowing. Mild facet arthropathy. C3-C4: Small disc bulge. No canal narrowing. Uncovertebral and facet arthropathy. Mild bilateral kellie roforaminal narrowing. C4-C5: Small disc bulge. Mild canal narrowing. Uncovertebral and facet arthropathy. Moderate to sara re right and moderate left neuroforaminal narrowing. C5-C6: Slight anterolisthesis. Disc bulge. No canal narrowing. Uncovertebral and facet arthropathy g reatest on the right. Mild right neuroforaminal narrowing. C6-C7: Small disc bulge. No canal narrowing. No neuroforaminal narrowing. C7-T1: Anterolisthesis. No canal narrowing. Facet arthropathy. Mild left neuroforaminal narrowing. When compared the prior examination the degenerative findings are similar. Impression: 1. Multilevel cervical spondylosis, similar compared to prior. 2. Mild canal narrowing C4-C5. 3. Multilevel neuroforaminal narrowing most prominent C4-C5. Electronically signed by: Darryn Dyer DO (12/18/2021 1:44 PM) [facility]
--- NOTE | 2021-12-18 13:53 | RAD ---
MRI LUMBAR SPINE WITHOUT AND WITH IV CONTRAST History: Reason: lumbar radiculopathy 25mL CLARISCAN / Spl. Instructions: / History: Technique: Multiplanar, multi sequential MR imaging was performed of the lumbar spine without and wit h intravenous contrast. Comparison: None Findings: Mild retrolisthesis L3 on L4. Slight grade 1 anterolisthesis L5 on S1. No acute fracture. T12 and T11 vertebral body hemangiomas. Degenerative endplate edema L2-L3 and L3-L4. Conus terminates at the normal location. No evidence of nerve root clumping. No pathologic enhancemen t. L1-L2: Small disc bulge. No canal or neuroforaminal narrowing. L2-L3: Posterior disc osteophyte complex. Moderate canal narrowing. Subarticular recess narrowing, r ight greater than left. Moderate facet arthropathy. Mild bilateral neuroforaminal narrowing. L3-L4: Retrolisthesis. Small disc extrusion extending inferiorly. Moderate facet arthropathy. Mild c anal narrowing. Postlaminectomy changes. Moderate bilateral neuroforaminal narrowing, left greater th an right. L4-L5: Small disc bulge. Advanced facet arthropathy. No canal narrowing. No neuroforaminal narrowing . L5-S1: Anterolisthesis. Small disc bulge. Mild facet arthropathy. Bilateral L5 pars defects. No leslie l narrowing. Mild bilateral neuroforaminal narrowing. Impression: 1. Multilevel lumbar spondylosis most prominent L2-L3. 2. L3-L4 moderate canal narrowing. 3. Postoperative changes L3-L4. 4. Neuroforaminal narrowing most prominent L2-L3 and L3-L4. Electronically signed by: Darryn Dyer DO (12/18/2021 1:50 PM) [facility]
--- NOTE | 2021-12-22 14:29 | HP ---
DATE OF SERVICE: 12/22/2021 ADMIT DATE: 12/18/2021 REASON FOR ADMISSION: Sedation with MRI scan. HISTORY OF PRESENT ILLNESS: The patient is a pleasant 71-year-old who has difficulty with neck and shoulder pain along with pain in his left arm and forearm. He intermittently has numbness in his hands. He also complains of low back pain on the right side as well as intermittent right leg pain. He has been following with Dr. Bruce at the pain clinic. He did have a lumbar surgery in 2016 and did well. On previous imaging studies, there was neural foraminal narrowing present on the left at C4-C5 and C5-C6. I did speak with him at that time about treatment options and surgery. We had him undergo physical therapy, which did not help him significantly. CURRENT MEDICATIONS: Furosemide, Cozaar, naproxen, metformin, Prevacid, amlodipine, Actos, Crestor, doxazosin, finasteride, Synthroid, vitamin D, alprazolam, hydrocodone. PAST MEDICAL HISTORY: Arthritis, asthma, hypertension. PAST SURGICAL HISTORY: Hernia repair, left total knee replacement, carpal tunnel bilaterally, cholecystectomy, lumbar microdecompression at L3-L4 bilateral with microdiskectomy in 04/2016. FAMILY HISTORY: Alzheimer's, cancer, diabetes, hypertension, heart disease. SOCIAL HISTORY: , retired, former smoker. ALLERGIES: No known drug allergies. REVIEW OF SYSTEMS: A 12-point review of systems was reviewed and is noncontributory except that mentioned above. PHYSICAL EXAMINATION: GENERAL: Alert, pleasant, and in no acute distress. HEENT: Head is normocephalic, atraumatic. NECK: [id number]-zbjurvjq tenderness with palpation of the posterior cervical region. SKIN: Warm and dry. Well-healed lumbar incision. BACK: Inwu-gq-japgurpy tenderness with palpation of the lower lumbar spine. MUSCULOSKELETAL: Cervical and lumbar paraspinal muscle bulk is normal, restricted range of motion of the cervical and lumbar spine, normal range of motion of the upper and lower extremities. EXTREMITIES: No clubbing, cyanosis or edema. NEUROLOGIC: Alert and oriented x 3. Strength is 5/5 in the upper extremities except left biceps 4+/5, sensory is intact to light touch in the upper and lower extremities. Reflexes were present and symmetric in the upper and lower extremities. Normal gait. ASSESSMENT AND PLAN: The patient has continued to have difficulties with his neck as well as now lumbar spine. He will require MRI scans of the cervical and lumbar spine and will follow up with me when those are complete. ZAINAB/LADAN DR: Azucena TID: [id number] MTDD
== END 2021-12-18 12:45 | disposition home or self-care (01) ==
LOC: SURG 09:11
PROVIDERS: ATTEND Neurological Surgery
DX: M47.23 Other spondylosis with radiculopathy, cervicothoracic region (principal); M47.27 Other spondylosis with radiculopathy, lumbosacral region; M51.17 Intervertebral disc disorders with radiculopathy, lumbosacral region; M48.03 Spinal stenosis, cervicothoracic region; M43.13 Spondylolisthesis, cervicothoracic region; M50.31 Other cervical disc degeneration, high cervical region; M48.07 Spinal stenosis, lumbosacral region; M43.17 Spondylolisthesis, lumbosacral region; Z98.890 Other specified postprocedural states
CPT/HCPCS: 36415; 72141; 72158; 82565; 84520; A9575; J2250; J2704; J3490

== ENCOUNTER → 2021-12-29 | Outpatient (CLI) | payer MEDICARE, OTHER ==
[2021-12-18 12:11] VITALS: BP 164/54
[~2021-12-29] MED LIST changes: +DEXAMETHASONE PRES.FREE 10 MG/ML VIAL. ONE; -HYDROmorphone 2 MG/ML INJ. IVP PRN; +IOHEXOL 180 MG/ML 10 ML VIAL. ONE; -IV RINGERS,LACTATED 1000ML 1,000 ML IV SCH; -MORPHINE SULFATE 2 MG/ML INJ. IVP PRN; -PROCHLORPERAZINE 10 MG/2 ML VIAL. IVP PRN; -fentaNYL PF VIAL 100 MCG/2 ML VIAL IVP PRN
--- NOTE | 2021-12-29 10:43 | PDOC ---
Progress Note - Pain Clinic Date of Service: DOS: DATE: 12/29/21 TIME: 10:38 Diagnosis: Dx: Lumbar radiculopathy with lumbar spinal stenosis lumbar postlaminectomy syndrome with lumbar and lumbosacral spondylosis Cervical radiculopathy with cervical degenerative disc disease Sacroiliitis History or Present Illness: HPI: 71-year-old male returns for follow-up status post cervical epidural steroid i njection most recently November 29, 2021 patient reports he did very well with his significant decrease in pain the base the neck and shoulders as well as the upper extremities his chief complaint now is low back and bilateral lower extremity pain worse on the right than the left with pain radiating across the low back into the right posterior lateral thigh anterior thigh medial thigh medial lower leg into the ankle on the right side some on the left but not as far into the lower extremity has on the right patient reports is worse over the past 2 weeks or so no recent injury or accident reported, reports his pain is a 10 on scale 10 is worse over the past week 8 on average 8 its least is an 8 today patient comes aching sharp shooting can be burning and tingling in the back as well worse with walking standing changing positions better with sitting or laying down generally does not awaken from sleep at night. Patient reports no bowel or bladder. MRI scan was obtained and we reviewed that with him today showing multilevel lumbar spondylosis most prominent at L2-3 L3-4 moderate canal narrowing postoperative changes L3-4 and neuroforaminal narrowing most prominent L2-3 and L3-4 as well as small disc bulge at L45 and L5-S1. Physical Exam: VS: Blood pressure is 142/78 pulse 76 respirations 18 temperature 98.4 F height is 6 foot weight is 291 pounds. PE: PHYSICAL EXAMINATION: GENERAL: The patient is awake, alert, oriented, appropriate, very pleasant in demeanor HEENT: Shows normocephalic, atraumatic. Extraocular movements are intact and symmetrical. Patient wearing eyeglasses. Oral cavity: Mucous membranes moist and pink. Dentition is intact. NECK: Shows anterior throat supple without palpable lymphadenopathy noted. Swallow reflex symmetrical. CHEST: Shows normal on inspection. Breath sounds are clear bilaterally, distant no rales rhonchi wheezes auscultated. HEART: Shows S1, S2 clear. No murmurs auscultated. ABDOMEN: Soft, nontender, nondistended, obese. No palpable organomegaly is noted. BACK: Shows spine grossly in the midline. Normal-appearing cervical lordotic curvature. There is moderately increased thoracic kyphosis, some flattening of the lumbar lordotic curvature, with well-healed surgical scarring noted. Lumbar paraspinous muscles show symmetrical on inspection, on palpation shows some moderate tenderness diffusely throughout the upper, middle and lower distribution of the paraspinous muscles, but without specific trigger points, without radiation of pain. The patient has good rotational motion of the lumbar spine, both laterally as well as extension and flexion without significant difficulty. Mild tenderness over the right superior aspect of the sacroiliac joint and posterior superior iliac spine without radiation. EXTREMITIES: Lower extremities show deep tendon reflexes 1+ in the patellar and tendo calcaneus tendons. Motor exam is 5 on a scale of 5 with right dorsiflexion, extension, quadriceps and hamstring flexion and 5/5 on the left. Peripheral pulses are 1+ posterior tibial. No peripheral edema is noted bilaterally. Lower extremities are warm and dry to touch, equal in color and appearance. SKIN: Shows warm and dry, good turgor. No edema. No sores, rashes or bruising throughout. Procedure: Procedure: Options were discussed with the patient. Patient's old chart was reviewed his his current medication regimen updated current review of systems updated today as well. We will proceed with a lumbar epidural steroid injection today with fluoroscopic guidance. Risks were discussed including but not limited to: Bleeding, infection, possibility of epidural hematoma and subsequent neurological compromise, dural puncture, headaches, spinal cord and/or nerve damage, side effects of steroid medication, and poor results regarding pain control. Patient understands and wished to proceed. Patient will return to clinic in approximately 3 weeks for follow-up, was counseled as to return appointment, active level, and side effect to be aware of. Medication Injected: Med Injected: Procedure is lumbar epidural steroid injection under local anesthetic using sterile prep and drape at the L4-5 level using C-arm fluoroscopic guidance in both AP and lateral views medications injected is 20 mg dexamethasone +10mL preservative-free normal saline and 2 mL contrast- condition at discharge is stable patient tolerated procedure well had no complications. Condition at Discharge: Condition at Discharge: Condition at discharge stable, paced tolerated procedure well and had no complications. JEREL CHURCH MD Dec 29, 2021 10:43
--- NOTE | 2021-12-29 10:43 | PDOC4 ---
Procedure Note: ICD 10 Code: ICD 10 Code: M54.16 M48.06 Procedure Note: Patient was consented for lumbar epidural steroid injection with fluoroscopic guidance. Risks were discussed including but not limited to: Bleeding, infection, possibility of epidural hematoma and subsequent neurological compromise, dural puncture, headaches, spinal cord and/or nerve damage, side effects of steroid medication, and poor results regarding pain control. Patient understands and wished to proceed. Procedure is lumbar epidural steroid injection under local anesthetic using sterile prep and drape at the L4-5 level using C-arm fluoroscopic guidance in both AP and lateral views medications injected is 20 mg dexamethasone +10mL preservative-free normal saline and 2 mL contrast- condition at discharge is stable patient tolerated procedure well had no complications. JEREL CHURCH MD Dec 29, 2021 10:43
== END | disposition home or self-care (01) ==
LOC: PNCL 09:45
PROVIDERS: ATTEND Anesthesiology
DX: M51.16 Intervertebral disc disorders with radiculopathy, lumbar region (principal); M48.061 Spinal stenosis, lumbar region without neurogenic claudication; M96.1 Postlaminectomy syndrome, not elsewhere classified; M47.26 Other spondylosis with radiculopathy, lumbar region; M50.10 Cervical disc disorder with radiculopathy, unspecified cervical region; M46.1 Sacroiliitis, not elsewhere classified; I10 Essential (primary) hypertension; E78.00 Pure hypercholesterolemia, unspecified; M19.90 Unspecified osteoarthritis, unspecified site; E11.9 Type 2 diabetes mellitus without complications; E03.9 Hypothyroidism, unspecified; F41.9 Anxiety disorder, unspecified; F32.9 Major depressive disorder, single episode, unspecified; Z79.84 Long term (current) use of oral hypoglycemic drugs; Z79.899 Other long term (current) drug therapy; Z87.891 Personal history of nicotine dependence; Z98.890 Other specified postprocedural states
CPT/HCPCS: 62323; J1100; Q9965